=== PATIENT | female | born 1940 | race Caucasian/White ===

== ENCOUNTER → 2017-02-16 | Day surgery (SDC) | payer MEDICARE ==
[~2017-02-16] VITALS: Ht 162.6 cm; Wt 103.0 kg
[~2017-02-16] MED LIST: ACETAMINOPHEN 325 MG TAB PO PRN; AMAR4TAB PO; AMLO5TAB2 PO; ASCO1CAP PO; CALC-137 PO; CALC600T25 PO; CHLORHEXIDINE GLUCONATE 2 % 1 PACK (2 CLOTHS) TOPICAL PRN; CYCLOPENTOLATE HCL 1% OPHT SOLN 2 ML BTL ONE; DIGO0.12 PO; FLURBIPROFEN 0.03% OPHT SOLN 2.5 ML BTL ONE; FLUTI110I INH; FURO1TAB60 PO; HYDR-3533 PO; INSULIN HUMAN REGULAR 1,000 UNITS/10 ML VIAL SQ PRN; LACTATED RINGER'S 1000 ML IV PRN; LEVO112T2 PO; LIDOCAINE HCL 1% PF 30 ML VIAL ONE; LIDOCAINE HCL 2% JELLY 5 ML SYRINGE ONE; LIDOCAINE HCL 2% JELLY 5 ML SYRINGE TOPICAL ONE; LISI40TA PO; METO50TA PO; METOPROLOL TARTRATE 25 MG TAB PO PRN; NOVOLOGMXP SQ; PHENYLEPHRINE HCL 10% OPTH SOLN 5 ML BTL ONE; POVIDONE IODINE 5% (ANTISEPSIS KIT) 4 APPLICATIONS EACH NARE PRN; PRAV80TA2 PO; PROPARACAINE HCL 0.5% OPHT SOLN 15 ML BTL ONE; PROPARACAINE HCL 0.5% OPHT SOLN 15 ML BTL RIGHT EYE ONE; SODIUM CHLORID 0.9% 500 ML IV PRN; TOBRAMYCIN/DEXAMETHASONE OPTH OINT 3.5 GM TUBE ONE; TRAD5TAB PO; TROPICAMIDE 1% OPHT SOLN 15 ML BTL ONE; VENTAER INH; VITA2000 PO
[2017-02-16 09:30] VITALS: BP 151/67; PULSE 92; RESP 18; TEMP 97.6; O2SAT 99
[2017-02-16] MEDS: FLURBIPROFEN 0.03% OPHT SOLN 2.5 ML BTL RIGHT EYE SCH ×4 (09:45→10:00)
[2017-02-16] MEDS: PHENYLEPHRINE HCL 10% OPTH SOLN 5 ML BTL RIGHT EYE SCH ×4 (09:45→10:00)
[2017-02-16] MEDS: TROPICAMIDE 1% OPHT SOLN 15 ML BTL RIGHT EYE SCH ×4 (09:45→10:00)
[2017-02-16] MEDS: CYCLOPENTOLATE HCL 1% OPHT SOLN 2 ML BTL RIGHT EYE SCH ×4 (09:45→10:00)
[2017-02-16 11:35] VITALS: BP 128/56; PULSE 88; RESP 16; TEMP 98; O2SAT 97
--- NOTE | 2017-02-17 13:20 | MP ---
cc: YIMI BARAKAT M.D. DATE OF SURGERY: 02/16/2017. [facility] NUMBER: [id number]. PREOPERATIVE DIAGNOSIS: Visually significant cataract right eye. POSTOPERATIVE DIAGNOSIS: Visually significant cataract right eye. OPERATION: Phacoemulsification with posterior chamber lens implantation, right eye. SURGEON: Yimi Barakat MD ANESTHESIA: Topical with MAC. COMPLICATIONS: None. DESCRIPTION OF THE PROCEDURE IN DETAIL: After informed consent was obtained, the patient was brought into the operative suite and placed on appropriate monitors by the anesthesia service. The patient had been given dilating drops and topical lidocaine gel in the holding area. The patient's operative eye was then prepped and draped in the usual sterile fashion. A wire lid speculum was placed. Further 2% lidocaine was then dropped on the cornea prior to beginning the procedure. A paracentesis incision was made in the peripheral cornea with a 1 mm johny keratome. The anterior chamber was filled with viscoelastic. The anterior chamber was then entered through a stepped, clear corneal incision using a sharp 3 mm johny keratome. A circular tear capsulorrhexis was then made with a bent needle cystitome. Following hydrodissection of the lens nucleus with balance saline, phacoemulsification of the nucleus was performed using a modified chopping technique. The remaining cortex was removed with irrigation/aspiration. The prior two procedures were both performed using the handpieces of the [employer] phaco unit. The capsular bag was then filled with viscoelastic. The intraocular lens was then injected into the capsular bag and positioned. The type of intraocular lens and its power can be found elsewhere in this chart. The remaining viscoelastic was then removed from the anterior chamber with the IA handpiece. The anterior chamber was reformed with balanced saline. The wound was then closed securely with stromal hydration. It was found to be watertight to an intraocular pressure of at least 30 mmHg by palpation. A small amount of balanced salt solution was then removed through the paracentesis site and the intraocular pressure at the end of the case was approximately 20 by palpation. All drapes were then removed. TobraDex ointment was then placed in the eye, which was closed beneath a semi-pressure patch dressing. The patient tolerated this procedure well and left the operating room awake and alert. The patient is to follow-up in my office in the morning. MD ASHISH Olmstead /10:52 AM /1:15 PM
== END | disposition home or self-care (01) ==
LOC: PHSDC 07:49
PROVIDERS: ATTEND Optometrist Occupational Vision
DX: H25.811 Combined forms of age-related cataract, right eye (principal); H49.11 Fourth [trochlear] nerve palsy, right eye; H53.2 Diplopia; H25.11 Age-related nuclear cataract, right eye; H43.813 Vitreous degeneration, bilateral; I12.9 Hypertensive chronic kidney disease with stage 1 through stage 4 chronic kidney disease, or unspecified chronic kidney disease; E11.22 Type 2 diabetes mellitus with diabetic chronic kidney disease; N18.9 Chronic kidney disease, unspecified; E11.21 Type 2 diabetes mellitus with diabetic nephropathy; E06.3 Autoimmune thyroiditis; E78.5 Hyperlipidemia, unspecified; M54.16 Radiculopathy, lumbar region; E03.9 Hypothyroidism, unspecified; E55.9 Vitamin D deficiency, unspecified; E66.01 Morbid (severe) obesity due to excess calories; Z68.39 Body mass index [BMI] 39.0-39.9, adult; Z79.4 Long term (current) use of insulin; Z79.899 Other long term (current) drug therapy
CPT/HCPCS: 00142; 66984; 82948; J7040; V2632

== ENCOUNTER 2017-04-22 11:38 | Observation (INO) | payer MEDICARE ==
[~2017-04-22] VITALS: Ht 162.6 cm; Wt 104.0 kg
[2017-04-22] VITALS (12 sets, daily range): BP systolic 121–151; BP diastolic 60–72; PULSE 75–101; RESP 16–18; TEMP 97.6–98.1; O2SAT 94–99
[~2017-04-22 11:38] MED LIST changes: -ACETAMINOPHEN 325 MG TAB PO PRN; -CALC-137 PO; -CHLORHEXIDINE GLUCONATE 2 % 1 PACK (2 CLOTHS) TOPICAL PRN; -CYCLOPENTOLATE HCL 1% OPHT SOLN 2 ML BTL ONE; -FLURBIPROFEN 0.03% OPHT SOLN 2.5 ML BTL ONE; -HYDR-3533 PO; -INSULIN HUMAN REGULAR 1,000 UNITS/10 ML VIAL SQ PRN; -LACTATED RINGER'S 1000 ML IV PRN; -LIDOCAINE HCL 1% PF 30 ML VIAL ONE; -LIDOCAINE HCL 2% JELLY 5 ML SYRINGE ONE; -LIDOCAINE HCL 2% JELLY 5 ML SYRINGE TOPICAL ONE; -METOPROLOL TARTRATE 25 MG TAB PO PRN; -PHENYLEPHRINE HCL 10% OPTH SOLN 5 ML BTL ONE; -POVIDONE IODINE 5% (ANTISEPSIS KIT) 4 APPLICATIONS EACH NARE PRN; -PROPARACAINE HCL 0.5% OPHT SOLN 15 ML BTL ONE; -PROPARACAINE HCL 0.5% OPHT SOLN 15 ML BTL RIGHT EYE ONE; -SODIUM CHLORID 0.9% 500 ML IV PRN; -TOBRAMYCIN/DEXAMETHASONE OPTH OINT 3.5 GM TUBE ONE; -TROPICAMIDE 1% OPHT SOLN 15 ML BTL ONE
[2017-04-22] MEDS ORDERED: ONDANSETRON HCL 4 MG/2 ML VIAL IV PUSH ONE (12:00)
[2017-04-22] MEDS ORDERED: SODIUM CHLORIDE 0.9% FLUSH 10 ML FLUSH IVF PRN (12:00)
--- NOTE | 2017-04-22 12:00 | PD ---
HPI Chief Complaint: Chest Pain Time Seen by Provider: 11:53 Travel History International Travel<30 days: No Contact w/Intl Traveler<30days: No Traveled to known affect area: No History of Present Illness HPI Patient comes in complaining of left-sided chest pain described as sharp in nature began approximately hour prior to arrival. Patient's pain radiates into her left arm associated nausea and belching with this. Patient denies shortness of breath, headache, dizziness, numbness or tingling, abdominal pain, or diaphoresis. Patient reports she took 2 full strength aspirin prior to coming to the emergency department with minimal improvement of her symptoms. Denies anything making it worse. Reports her last stress test was approximately 2 years ago. Patient denies ever having cardiac catheter. Patient reports her in home tutor is Dr. Amaya. [facility] Past Medical History Atrial Fibrillation: Yes Blood Disorders: No Heart Rhythm Problems: Yes (PALPITATIONS) Cancer: Yes (RIGHT BREAST--34 YEARS AGO, CURRENT L BREAST) Cardiovascular Problems: Yes (HX OF PALPITATIONS) High Cholesterol: Yes Chest Pain: Yes Congestive Heart Failure: No Diabetes: Yes Endocrine: Yes GERD: Yes Genitourinary: No Hepatitis: No Hiatal Hernia: No Hypertension: Yes Immune Disorder: No Musculoskeletal: Yes (LUMBAR RADICULOPATHY) Neurologic: Yes (DIABETIC NEUROPATHY) Psychiatric: No Reproductive: No Respiratory: Yes (ASTHMA) Myocardial Infarction: No Radiation Therapy: No Thyroid Disease: Yes (HX OF STANTON'S; GOITER) Ulcer: No ?: Not Menopausal: Yes Past Surgical History Abdominal Surgery: Yes (CHOLECYSTECTOMY 1973) AICD: No Appendectomy: No Arteriovenous Shunt: No Body Medical Devices: NONE Cardiac Surgery: No Cholecystectomy: No Ear Surgery: No Endocrine Surgery: No Eye Surgery: Yes (LEFT CATARACT ) Genitourinary Surgery: No Gynecologic Surgery: Yes (TOTAL ABD.HYSTERECTOMY 1990) Hysterectomy: Yes Insulin Pump: No Joint Replacement: No Oral Surgery: No Pacemaker: No Thoracic Surgery: Yes (RADICAL RIGHT MASTECTOMY 1980) Other Surgery: Yes (RIGHT MASTECTOMY, HYSTERECTOMY, GALLBLADDER) Social History Alcohol Use: No Tobacco Use: No Substance Use: No Allergies-Medications (Allergen,Severity, Reaction): Coded Allergies: ciprofloxacin (Unverified Allergy, Severe, Itching, 04/22/17) SCRATCHING, HYPER fenofibrate (Unverified Allergy, Severe, Nausea/Vomiting, 04/22/17) Reported Meds & Prescriptions Reported Meds & Active Scripts Active Reported Calcium (Calcium Carbonate) 600 Mg Tab PO DAILY Vitamin D3 (Cholecalciferol) 2,000 Unit Cap 2,000 Units PO DAILY Vitamin C Tr (Ascorbic Acid) 500 Mg Caper 500 Mg PO DAILY Tradjenta (Linagliptin) 5 Mg Tab 5 Mg PO DAILY Metoprolol Tartrate 50 Mg Tab 50 Mg PO BID Amlodipine (Amlodipine Besylate) 5 Mg Tab 5 Mg PO DAILY Levothyroxine (Levothyroxine Sodium) 112 Mcg Tab 112 Mcg PO DAILY Lisinopril 40 Mg Tab 40 Mg PO DAILY Pravastatin 80 Mg Tab 80 Mg PO DAILY Novolog Mix 70-30 Inj (Insulin Aspart Prota 70%/Aspart 30%) 1,000 Unit/10 Ml Vial 16 Units SQ DAILY Lasix (Furosemide) 40 Mg Tab 40 Mg PO DAILY Flovent Hfa 12 GM Inh (Fluticasone Propionate) 110 Mcg/Act Inh 1 Puff INH BID Amaryl (Glimepiride) 4 Mg Tab 4 Mg PO DAILY Take with breakfast or first main meal Digoxin 0.125 Mg Tab 0.125 Mg PO DAILY Ventolin Hfa 18 GM Inh (Albuterol Sulfate) 90 Mcg/Act Aer 2 Puff INH Q4H PRN Review of Systems Except as stated in HPI: all other systems reviewed are Neg Physical Exam Narrative GENERAL: Well-developed, overly nourished, in no acute distress, and non-ill appearing. SKIN: Focused skin assessment warm and dry. HEAD: Atraumatic. Normocephalic. EYES: Pupils equal and round. EOMI. No scleral icterus. No injection or drainage. ENT: No nasal bleeding or discharge. Mucous membranes pink and moist. NECK: Trachea midline. No JVD. Supple. No nuclear rigidity. CARDIOVASCULAR: Regular rate and rhythm. No murmur appreciated. RESPIRATORY: No accessory muscle use. No respiratory distress. Clear to auscultation. Breath sounds equal bilaterally. MUSCULOSKELETAL: No obvious deformities. No clubbing. No cyanosis. No edema. Full range of motion. NEUROLOGICAL: Awake and alert. No obvious cranial nerve deficits. Motor grossly within normal limits. Normal speech. PSYCHIATRIC: Appropriate mood and affect; insight and judgment normal. Data Data Last Documented VS Vital Signs Date Time Temp Pulse Resp B/P (MAP) Pulse Ox O2 Delivery O2 Flow Rate FiO2 04/22/17 14:07 20 04/22/17 12:57 81 121/65 (83) 95 Room Air 04/22/17 11:46 97.6 Orders Orders Electrocardiogram (04/22/17 ) Basic Metabolic Panel (Bmp) (04/22/17 11:54) Ckmb (Isoenzyme) Profile (04/22/17 11:54) Complete Blood Count With Diff (04/22/17 11:54) Magnesium (Mg) (04/22/17 11:54) Prothrombin Time / Inr (Pt) (04/22/17 11:54) Act Partial Throm Time (Ptt) (04/22/17 11:54) Troponin I (04/22/17 11:54) Chest, Single Ap (04/22/17 11:54) Ecg Monitoring (04/22/17 11:54) Bilateral Bp Monitoring (04/22/17 11:54) Iv Access Insert/Monitor (04/22/17 11:54) Oximetry (04/22/17 11:54) Oxygen Administration (04/22/17 11:54) Sodium Chloride 0.9% Flush (Ns Flush) (04/22/17 12:00) Nitroglycerin Sl (Nitrostat Sl) (04/22/17 12:00) Ondansetron Inj (Zofran Inj) (04/22/17 12:00) Acetaminophen (Tylenol) (04/22/17 13:15) Sodium Chlorid 0.9% 500 Ml Inj (Ns 500 M (04/22/17 13:30) Admit Order (Ed Use Only) (04/22/17 14:22) Labs Laboratory Tests Test 04/22/17 12:25 White Blood Count 14.2 TH/MM3 Red Blood Count 3.91 MIL/MM3 Hemoglobin 11.5 GM/DL Hematocrit 35.0 % Mean Corpuscular Volume 89.4 FL Mean Corpuscular Hemoglobin 29.5 PG Mean Corpuscular Hemoglobin Concent 33.0 % Red Cell Distribution Width 12.5 % Platelet Count 298 TH/MM3 Mean Platelet Volume 8.9 FL Neutrophils (%) (Auto) 74.2 % Lymphocytes (%) (Auto) 16.6 % Monocytes (%) (Auto) 6.0 % Eosinophils (%) (Auto) 2.4 % Basophils (%) (Auto) 0.8 % Neutrophils # (Auto) 10.5 TH/MM3 Lymphocytes # (Auto) 2.4 TH/MM3 Monocytes # (Auto) 0.8 TH/MM3 Eosinophils # (Auto) 0.3 TH/MM3 Basophils # (Auto) 0.1 TH/MM3 CBC Comment DIFF FINAL Differential Comment Prothrombin Time 10.1 SEC Prothromb Time International Ratio 0.9 RATIO Activated Partial Thromboplast Time 21.4 SEC Blood Urea Nitrogen 48 MG/DL Creatinine 1.72 MG/DL Random Glucose 243 MG/DL Calcium Level 9.1 MG/DL Magnesium Level 1.9 MG/DL Sodium Level 137 MEQ/L Potassium Level 4.9 MEQ/L Chloride Level 108 MEQ/L Carbon Dioxide Level 19.6 MEQ/L Anion Gap 9 MEQ/L Estimat Glomerular Filtration Rate 29 ML/MIN Total Creatine Kinase 60 U/L Troponin I LESS THAN 0.02 NG/ML MDM Medical Decision Making Medical Screen Exam Complete: Yes Emergency Medical Condition: Yes Interpretation(s) EKG reviewed by Dr. Betts shows atrial fibrillation with a ventricular rate of 94. No STEMI. T-wave inversions in V1 through V3 Differential Diagnosis Acute coronary syndrome, angina, metabolic derangement, GERD, pneumonia, other Narrative Course Patient was seen and examined. IV was established and patient was placed on cardiac monitoring. Initial lab for radiological studies were ordered. Nitroglycerin sublingual was ordered. Suspect slightly elevated white blood cell count be stress-induced secondary to the chest pain. Patient reports she was recently checked for UTI found to be negative. Patient denies any symptoms. We'll check a UA to rule out possible UTI. 1400 patient reassessed reports symptoms and was completely alleviated after receiving nitroglycerin emergency department along with the aspirin she took prior to coming to the emergency department. Discussed with patient admission to the chest pain center. This discussed with patient who is agreeable for admission. All questions were answered. We'll await collection of UA and treat if positive. Discussed patient with Dr. Betts, who is in agreement with plan of care and disposition. Diagnosis Primary Impression: Chest pain Qualified Codes: R07.9 - Chest pain, unspecified Admitting Information Admitting Physician Requests: Observation Condition: Stable Chris Marin Apr 22, 2017 12:00
[2017-04-22] MEDS: NITROGLYCERIN 0.4 MG SL 25 TABS/BTL SL SCH ×3 (12:23→12:58)
--- NOTE | 2017-04-22 12:23 | RADRPT ---
EXAM DATE/TIME: 04/22/2017 11:58 [facility] COMPARISON: No previous studies available for comparison. INDICATIONS : Dizziness, left sided chest and arm pain. MEDICAL HISTORY : Pneumonia. Asthma. Atrial fibrillation. SURGICAL HISTORY : None. ENCOUNTER: Initial ACUITY: 1 day PAIN SCORE: 5/10 LOCATION: Left chest and arm. FINDINGS: A single view of the chest demonstrates the lungs to be symmetrically aerated without evidence of mas s, infiltrate or effusion. The cardiomediastinal contours are unremarkable. Osseous structures are intact. CONCLUSION: Normal examination for a patient of this age. Tae Acharya MD on April 22, 2017 at 12:21 Board Certified Radiologist. This report was verified electronically.
[2017-04-22 12:33] LABS: AUTOMATED NEUTROPHIL # 10.5 TH/MM3 (1.8-7.7); BASOPHIL # 0.1 TH/MM3 (0-0.2); BASOPHIL % 0.8 % (0.0-2.0); EOSINOPHIL # 0.3 TH/MM3 (0-0.4); EOSINOPHIL % 2.4 % (0.0-4.0); HEMO FLAGS DIFF FINAL; LYMPH % 16.6 % (9.0-44.0); LYMPHOCYTE # 2.4 TH/MM3 (1.0-4.8); MEAN CELL VOLUME 89.4 FL (80.0-100.0); MEAN CORPUSCULAR HEMOGLOBIN 29.5 PG (27.0-34.0); NEUT % 74.2 % (16.0-70.0); PLATELET COUNT 298 TH/MM3 (150-450); RED BLOOD COUNT 3.91 MIL/MM3 (4.00-5.30); RED CELL DISTRIBUTION WIDTH 12.5 % (11.6-17.2); WHITE BLOOD COUNT 14.2 TH/MM3 (4.0-11.0)
[2017-04-22 12:41] LABS: APTT (PATIENT) 21.4 SEC (24.3-30.1); INTERNATIONAL NORMALIZED RATIO 0.9 RATIO; PROTHROMBIN TIME - PATIENT 10.1 SEC (9.8-11.6)
[2017-04-22 13:15] LABS: CREATINE KINASE 60 U/L (26-192)
[2017-04-22] MEDS ORDERED: ACETAMINOPHEN 500 MG CPLT PO ONE (13:15)
[2017-04-22 13:16] LABS: ANION GAP 9 MEQ/L (5-15); BICARBONATE 19.6 MEQ/L (21.0-32.0); BLOOD UREA NITROGEN 48 MG/DL (7-18); CHLORIDE 108 MEQ/L (98-107); GLOMERULAR FILTRATION RATE 29 ML/MIN (>89); MAGNESIUM 1.9 MG/DL (1.5-2.5); POTASSIUM 4.9 MEQ/L (3.5-5.1); SODIUM (NA) 137 MEQ/L (136-145)
[2017-04-22] MEDS ORDERED: SODIUM CHLORID 0.9% 500 ML INJ 500 ML IV ONE (13:30)
--- NOTE | 2017-04-22 14:34 | EKG ---
Date Performed: 04/22/2017 Time Performed: 11:55:48 PTAGE: 76 years EKG: ATRIAL FIBRILLATION NONSPECIFIC ST & T-WAVE ABNORMALITY ABNORMAL RHYTHM ECG Compared to jerel or electrocardiogram, probable atrial fibrillation has replaced Sinus rhythm . PREVIOUS TRACING : 05/04/2008 13.26 DOCTOR: Ulysses Mejía Interpretating Date/Time 04/22/2017 14:32:45
[2017-04-22 15:54] LABS: CREATINE KINASE 44 U/L (26-192)
[2017-04-22] MEDS ORDERED: SODIUM CHLORIDE 0.9% FLUSH 5 ML FLUSH IVF PRN (16:00)
[2017-04-22] MEDS ORDERED: RESP: ALBUTEROL 2.5 MG/IPRATROPIUM 0.5 MG NEB (PRN) INH (16:00)
[2017-04-22] MEDS ORDERED: ONDANSETRON HCL 4 MG/2 ML VIAL IV PUSH PRN (16:00)
[2017-04-22] MEDS ORDERED: ACETAMINOPHEN 500 MG CPLT PO PRN (16:00)
[2017-04-22] MEDS ORDERED: ACETAMINOPHEN/HYDROcodone 325 MG/7.5 MG TAB PO PRN (16:00)
[2017-04-22] MEDS ORDERED: cloNIDine HCL 0.1 MG TAB PO PRN (16:00)
--- NOTE | 2017-04-22 16:24 | HHI.HP ---
[facility] Primary Care Physician Ruy Matson M.D. Chief Complaint Chest pain History of Present Illness This is a 76-year-old female that presents to ED via private vehicle with her with a complaint of grunting left-sided chest discomfort that began about 10:30 this morning while she is getting ready to go grocery shopping. She states that radiated into her left jaw and down her left arm. Last for half hours. While she had she found nothing to worsen or improve the symptoms. She states she took a couple baby aspirins and decided to come to the ED when it would not go away. She states that she was given subluminal nitroglycerin in the ED. After the first there are no change. She believes started feel little better after the second nitroglycerin but by time the third was a lining feller she was feeling a lot better. Still took another hour or so for the discomfort to resolve. Cannot recall having history of coronary artery disease. But states she has history of palpitations and upon review records she has history of atrial fibrillation. States she follows Dr. Amaya for palpitations. Patient denies feeling short of breath, nauseous, or diaphoretic with her symptoms. She believes she had a stress test but it was many years ago. Upon reviewing records she had a nonischemic adenosine thallium stress test in 2007 at this facility. Currently denies any discomfort. Denies recent illness. Denies fevers or chills. Denies any abdominal discomfort or difficulty with urination or painful urination. Denies black or tarry stools. (Manuel Fam) History of Present Illness Please remove "grunting" in line one (Jeyson Vasquez MD) Review of Systems General: Patient denies fevers, chills recent, and recent travel HEENT: Patient denies headache, sore throat, difficulty swallowing. Cardiovascular: Has the chest discomfort as mentioned above. Denies sensation of heart beating rapidly or irregularly. No syncope. Denies diaphoresis. Respiratory: Denies shortness of breath or inspirational chest discomfort. Denies coughing wheezing or hemoptysis. GI: Patient denies nausea, vomiting, diarrhea, abdominal pain, bloody stools. Musculoskeletal: Patient denies joint pain or edema. Denies calf pain or edema. Neurovascular: Patient denies numbness, tingling, weakness in extremities. Denies headache. Endocrine: Denies polyuria and polydipsia. Hematologic: Denies easy bruising. Skin: Denies rash or itching. (Manuel Fam) Past Family Social History Allergies: Coded Allergies: ciprofloxacin (Unverified Allergy, Severe, Itching, 04/22/17) SCRATCHING, HYPER fenofibrate (Unverified Allergy, Severe, Nausea/Vomiting, 04/22/17) Past Medical History Atrial fibrillation, hypertension, diabetes, hyperlipidemia, hypothyroidism. Denies coronary disease. Past Surgical History Hysterectomy, cholecystectomy, right mastectomy. Reported Medications Reported Meds & Active Scripts Active Reported Calcium (Calcium Carbonate) 600 Mg Tab PO DAILY Vitamin D3 (Cholecalciferol) 2,000 Unit Cap 2,000 Units PO DAILY Vitamin C Tr (Ascorbic Acid) 500 Mg Caper 500 Mg PO DAILY Tradjenta (Linagliptin) 5 Mg Tab 5 Mg PO DAILY Metoprolol Tartrate 50 Mg Tab 50 Mg PO BID Amlodipine (Amlodipine Besylate) 5 Mg Tab 5 Mg PO DAILY Levothyroxine (Levothyroxine Sodium) 112 Mcg Tab 112 Mcg PO DAILY Lisinopril 40 Mg Tab 40 Mg PO DAILY Pravastatin 80 Mg Tab 80 Mg PO DAILY Novolog Mix 70-30 Inj (Insulin Aspart Prota 70%/Aspart 30%) 1,000 Unit/10 Ml Vial 16 Units SQ DAILY Lasix (Furosemide) 40 Mg Tab 40 Mg PO DAILY Flovent Hfa 12 GM Inh (Fluticasone Propionate) 110 Mcg/Act Inh 1 Puff INH BID Amaryl (Glimepiride) 4 Mg Tab 4 Mg PO DAILY Take with breakfast or first main meal Digoxin 0.125 Mg Tab 0.125 Mg PO DAILY Ventolin Hfa 18 GM Inh (Albuterol Sulfate) 90 Mcg/Act Aer 2 Puff INH Q4H PRN Active Ordered Medications Current Medications Medications (Trade) Dose Ordered Sig/Galina Route Start Time Stop Time Status Last Admin (NS Flush) 2 ml UNSCH PRN IVF 04/22/17 12:00 (Norvasc) 5 mg DAILY PO 04/23/17 09:00 (Lanoxin) 0.125 mg DAILY PO 04/23/17 09:00 (Lasix) 40 mg DAILY PO 04/23/17 09:00 Future Hold (Synthroid) 112 mcg DAILY@0600 PO 04/23/17 06:00 (Lopressor) 50 mg BID PO 04/22/17 21:00 (Pravachol) 80 mg DAILY PO 04/23/17 09:00 (Prinivil) 40 mg DAILY PO 04/23/17 09:00 Family History Denies family history of CAD. Social History Patient is a lifetime nonsmoker. Denies alcohol or illicit drugs. She has been 52 years. (Manuel Fam) Physical Exam Vital Signs Vital Signs Date Time Temp Pulse Resp B/P (MAP) Pulse Ox O2 Delivery O2 Flow Rate FiO2 04/22/17 15:26 97.6 78 16 131/60 (83) 98 04/22/17 15:20 04/22/17 15:07 75 16 144/67 (92) 95 Room Air 04/22/17 14:07 20 04/22/17 13:03 20 04/22/17 12:57 81 18 121/65 (83) 95 Room Air 04/22/17 12:35 82 18 128/60 (82) 99 Room Air 04/22/17 12:25 16 99 Room Air 04/22/17 12:23 92 16 142/64 (90) 99 Room Air 04/22/17 11:46 97.6 101 17 151/72 (98) 97 Physical Exam GENERAL: This is a well-nourished, well-developed patient, in no apparent distress. Patient speaks in clear complete sentences. Patient is pleasant. HEENT: Head is atraumatic and normocephalic. Neck is supple without lymphadenopathy and trachea is midline. No JVD or carotid bruits. CARDIOVASCULAR: Irregularly irregular rate and rhythm without murmurs, gallops, or rubs. Rate in the 80s upon examination. RESPIRATORY: Clear to auscultation. Breath sounds equal bilaterally. No wheezes , rales, or rhonchi. Chest wall is nontender. No use of accessory muscles. GASTROINTESTINAL: Abdomen is nontender, nondistended. Abdomen soft. No obvious pulsatile mass or bruit. No CVA tenderness. Strong femoral pulses bilaterally. Normal bowel sounds in all quadrants. MUSCULOSKELETAL: Patient is moving upper and lower extremities freely. No calf tenderness or edema, no Homans sign. Strong pulses in upper and lower extremities. NEUROLOGICAL: Patient is alert and oriented. Cranial nerves 2-12 are grossly intact. No focal deficits and speech is clear. SKIN: No rash and turgor is normal. Laboratory Laboratory Tests Test 04/22/17 12:25 04/22/17 15:10 White Blood Count 14.2 Red Blood Count 3.91 Hemoglobin 11.5 Hematocrit 35.0 Mean Corpuscular Volume 89.4 Mean Corpuscular Hemoglobin 29.5 Mean Corpuscular Hemoglobin Concent 33.0 Red Cell Distribution Width 12.5 Platelet Count 298 Mean Platelet Volume 8.9 Neutrophils (%) (Auto) 74.2 Lymphocytes (%) (Auto) 16.6 Monocytes (%) (Auto) 6.0 Eosinophils (%) (Auto) 2.4 Basophils (%) (Auto) 0.8 Neutrophils # (Auto) 10.5 Lymphocytes # (Auto) 2.4 Monocytes # (Auto) 0.8 Eosinophils # (Auto) 0.3 Basophils # (Auto) 0.1 CBC Comment DIFF FINAL Differential Comment Prothrombin Time 10.1 Prothromb Time International Ratio 0.9 Activated Partial Thromboplast Time 21.4 Blood Urea Nitrogen 48 Creatinine 1.72 Random Glucose 243 Calcium Level 9.1 Magnesium Level 1.9 Sodium Level 137 Potassium Level 4.9 Chloride Level 108 Carbon Dioxide Level 19.6 Anion Gap 9 Estimat Glomerular Filtration Rate 29 Total Creatine Kinase 60 44 Troponin I LESS THAN 0.02 LESS THAN 0.02 (Manuel Fam) Result Diagram: 04/22/17 1225 04/22/17 1225 Imaging Last 48 hours Impressions Chest X-Ray 04/22/17 1154 Signed Impressions: Service Date/Time: Saturday, April 22, 2017 11:58 - CONCLUSION: Normal examination for a patient of this age. Tae Acharya MD Course EKGs have A. fib rate at 94 and [address] changes. (Manuel Fam) Caprini VTE Risk Assessment Caprini VTE Risk Assessment: Mod/High Risk (score >= 2) Caprini Risk Assessment Model Point Value = 1 Point Value = 2 Point Value = 3 Point Value = 5 Age 41-60 Minor surgery BMI > 25 kg/m2 Swollen legs Varicose veins or History of unexplained or recurrent spontaneous Oral contraceptives or hormone replacement Sepsis (< 1 month) Serious lung disease, including pneumonia (< 1 month) Abnormal pulmonary function Acute myocardial infarction Congestive heart failure (< 1 month) History of inflammatory bowel disease Medical patient at bed rest Age 61-74 Arthroscopic surgery Major open surgery (> 45 min) Laparoscopic surgery (> 45 min) Malignancy Confined to bed (> 72 hours) Immobilizing plaster cast Central venous access Age >= 75 History of VTE Family history of VTE Factor V Leiden Prothrombin [id number] Lupus anticoagulant Anticardiolipin antibodies Elevated serum homocysteine Heparin-induced thrombocytopenia Other congenital or acquired thrombophilia Stroke (< 1 month) Elective arthroplasty Hip, pelvis, or leg fracture Acute spinal cord injury (< 1 month) Prophylaxis Regimen Total Risk Factor Score Risk Level Prophylaxis Regimen 0-1 Low Early ambulation 2 Moderate Order ONE of the following: *Sequential Compression Device (SCD) *Heparin 5000 units SQ BID 3-4 Higher Order ONE of the following medications: *Heparin 5000 units SQ TID *Enoxaparin/Lovenox 40 mg SQ daily (WT < 150 kg, CrCl > 30 mL/min) *Enoxaparin/Lovenox 30 mg SQ daily (WT < 150 kg, CrCl > 10-29 mL/min) *Enoxaparin/Lovenox 30 mg SQ BID (WT < 150 kg, CrCl > 30 mL/min) AND/OR *Sequential Compression Device (SCD) 5 or more Highest Order ONE of the following medications: *Heparin 5000 units SQ TID (Preferred with Epidurals) *Enoxaparin/Lovenox 40 mg SQ daily (WT < 150 kg, CrCl > 30 mL/min) *Enoxaparin/Lovenox 30 mg SQ daily (WT < 150 kg, CrCl > 10-29 mL/min) *Enoxaparin/Lovenox 30 mg SQ BID (WT < 150 kg, CrCl > 30 mL/min) AND *Sequential Compression Device (SCD) (Manuel Fam) Assessment and Plan Assessment and Plan * Chest pain: Patient will continue to have serial cardiac enzymes and EKGs for ruling out purposes. She will be seen by Dr. Vasquez of cardiology in the chest pain center and likely have a Lexiscan if she rules out. Patient likely will also be discharged home if the stress test is nonischemic. She will then need to follow-up with her daub color mixer. * Atrial fibrillation: Patient's rate is controlled. We will get a dig level. Patient is currently not on anticoagulants and cannot recall ever being on them. Chads score 2. Discussed per DEXA dose with pharmacy. The calculated the dose for renal function and we will start per DEXA 75 mg twice a day. The risks and benefits of this medication were discussed with the patient and agrees to take the medication at this time. She will need to continue follow- up with her daub color mixer regarding this. * Hypertension: Continue current medication. * Hyperlipidemia: Continue current medication. * Renal insufficiency: Likely hold Lasix at this time and she should discuss this with her physician within a couple days of being discharged. Basic metabolic panel will be rechecked in the morning. * Diabetes: Sliding scale insulin coverage follow diabetic diet at discharge. Resume medication at discharge. Patient is stable at this time. She is agreeable to this plan. (Manuel Fam) Manuel Fam Apr 22, 2017 16:24 Jeyson Vasquez MD Apr 23, 2017 09:02
[2017-04-22] MEDS: INSULIN NovoLIN REGULAR SUPPLEMENTAL SCALE SQ SCH ×2 (17:00→21:25)
[2017-04-22] MEDS ORDERED: DEXTROSE 50% IN WATER 50 ML VIAL(D50) IV PUSH PRN ×2 (17:00→18:00)
[2017-04-22] MEDS ORDERED: GLUCAGON 1 MG/ML VIAL OTHER PRN ×2 (17:00→18:00)
[2017-04-22 17:48] LABS: DIGOXIN 1.4 NG/ML (0.8-2.0)
[2017-04-22 19:22] LABS: CREATINE KINASE 43 U/L (26-192)
[2017-04-22] MEDS: SODIUM CHLORIDE 0.9% FLUSH 5 ML FLUSH IVF SCH (21:00)
[2017-04-22] MEDS: METOPROLOL TARTRATE 50 MG TAB PO SCH (21:16)
[2017-04-22] MEDS: DABIGATRAN ETEXILATE 75 MG CAP PO SCH (21:16)
[2017-04-23] VITALS (8 sets, daily range): BP systolic 122–132; BP diastolic 58–66; PULSE 78–88; RESP 17–20; TEMP 97.5–98.2; O2SAT 95–98
[2017-04-23] MEDS ORDERED: LEVOTHYROXINE SODIUM 112 MCG TAB PO SCH (06:00)
[2017-04-23 07:35] LABS: BICARBONATE 18.9 MEQ/L (21.0-32.0); POTASSIUM 4.9 MEQ/L (3.5-5.1)
[2017-04-23] MEDS: INSULIN NovoLIN REGULAR SUPPLEMENTAL SCALE SQ SCH ×2 (08:00→12:00)
[2017-04-23] MEDS ORDERED: DIGOXIN 0.125 MG TAB PO SCH (09:00)
[2017-04-23] MEDS: SODIUM CHLORIDE 0.9% FLUSH 5 ML FLUSH IVF SCH (09:00)
[2017-04-23] MEDS ORDERED: PRAVASTATIN SOD 80 MG TAB PO SCH (09:00)
[2017-04-23] MEDS ORDERED: amLODIPine BESYLATE 5 MG TAB PO SCH (09:00)
[2017-04-23] MEDS ORDERED: FUROSEMIDE 40 MG TAB PO SCH (09:00)
[2017-04-23] MEDS ORDERED: ASPIRIN 325 MG TAB PO SCH (09:00)
[2017-04-23] MEDS ORDERED: LISINOPRIL 20 MG TAB PO SCH (09:00)
[2017-04-23] MEDS ORDERED: PANTOPRAZOLE SOD 40 MG DELAYED RELEASE TAB PO SCH (09:00)
--- NOTE | 2017-04-23 09:38 | PD.CARD.PN ---
Subjective Subjective Remarks No overnight complaints. No further chest discomfort. Objective Medications Current Medications Medications (Trade) Dose Ordered Sig/Galina Route Start Time Stop Time Status Last Admin (Norvasc) 5 mg DAILY PO 04/23/17 09:00 (Lanoxin) 0.125 mg DAILY PO 04/23/17 09:00 (Lasix) 40 mg DAILY PO 04/23/17 09:00 Future Hold (Synthroid) 112 mcg DAILY@0600 PO 04/23/17 06:00 04/23/17 06:39 (Lopressor) 50 mg BID PO 04/22/17 21:00 04/22/17 21:16 (Pravachol) 80 mg DAILY PO 04/23/17 09:00 (Prinivil) 40 mg DAILY PO 04/23/17 09:00 (Duoneb Neb) 1 ampule Q4HR NEB PRN INH 04/22/17 16:00 (Catapres) 0.1 mg Q4H PRN PO 04/22/17 16:00 (NS Flush) 2 ml UNSCH PRN IVF 04/22/17 16:00 (NS Flush) 2 ml BID IVF 04/22/17 21:00 (Tylenol) 500 mg Q4H PRN PO 04/22/17 16:00 (Schoenchen 7.5-325 Mg) 1 tab Q4H PRN PO 04/22/17 16:00 (Zofran Inj) 4 mg Q6H PRN IV PUSH 04/22/17 16:00 (Protonix) 40 mg DAILY PO 04/23/17 09:00 (Pradaxa) 75 mg BID PO 04/22/17 21:00 04/22/17 21:16 (NovoLIN R SUPPLEMENTAL SCALE) 1 ACHS SLIDING SCALE SQ 04/22/17 17:00 04/22/17 21:25 (D50w (Vial) Inj) 50 ml UNSCH PRN IV PUSH 04/22/17 17:00 (Glucagon Inj) 1 mg UNSCH PRN OTHER 04/22/17 17:00 (D50w (Vial) Inj) 50 ml UNSCH PRN IV PUSH 04/22/17 18:00 (Glucagon Inj) 1 mg UNSCH PRN OTHER 04/22/17 18:00 Vital Signs / I&O Vital Signs Date Time Temp Pulse Resp B/P (MAP) Pulse Ox O2 Delivery O2 Flow Rate FiO2 04/23/17 08:13 98.2 85 20 132/66 (88) 98 04/23/17 08:03 96 21 04/23/17 07:33 88 04/23/17 04:07 97.5 88 17 122/58 (79) 97 04/23/17 04:00 84 04/23/17 00:00 84 04/22/17 23:04 98.1 77 17 126/65 (85) 94 04/22/17 20:23 96 04/22/17 20:00 84 04/22/17 19:53 97.9 79 17 134/62 (86) 96 04/22/17 16:39 78 04/22/17 15:26 97.6 78 16 131/60 (83) 98 04/22/17 15:20 04/22/17 15:07 75 16 144/67 (92) 95 Room Air 04/22/17 14:07 20 04/22/17 13:03 20 04/22/17 12:57 81 18 121/65 (83) 95 Room Air 04/22/17 12:35 82 18 128/60 (82) 99 Room Air 04/22/17 12:25 16 99 Room Air 04/22/17 12:23 92 16 142/64 (90) 99 Room Air 04/22/17 11:46 97.6 101 17 151/72 (98) 97 I/O 04/22/17 04/22/17 04/22/17 04/23/17 04/23/17 04/23/17 07:00 15:00 23:00 07:00 15:00 23:00 Intake Total 500 ml Balance 500 ml Intake IV Total 500 ml # Voids 1 1 # Bowel Movements 1 Physical Exam General: A+Ox4. No acute distress. Friendly and pleasant. Cardiac: Rate regular, irregular, no murmur, rub or gallop. No JVD, no carotid bruits. Chest wall nontender with palpation. Resp: Lungs clear throughout, no crackles, wheeze, or rhonchi. Unlabored RR. Abd: obese, soft, nontender, +BS Psych: Appropriate mood, insight, and judgement. Skin: Normal turgor, pink, warm, and dry. Laboratory Laboratory Tests Test 04/22/17 12:25 04/22/17 15:10 10/14/17 18:40 04/23/17 06:59 White Blood Count 14.2 TH/MM3 Red Blood Count 3.91 MIL/MM3 Hemoglobin 11.5 GM/DL Hematocrit 35.0 % Mean Corpuscular Volume 89.4 FL Mean Corpuscular Hemoglobin 29.5 PG Mean Corpuscular Hemoglobin Concent 33.0 % Red Cell Distribution Width 12.5 % Platelet Count 298 TH/MM3 Mean Platelet Volume 8.9 FL Neutrophils (%) (Auto) 74.2 % Lymphocytes (%) (Auto) 16.6 % Monocytes (%) (Auto) 6.0 % Eosinophils (%) (Auto) 2.4 % Basophils (%) (Auto) 0.8 % Neutrophils # (Auto) 10.5 TH/MM3 Lymphocytes # (Auto) 2.4 TH/MM3 Monocytes # (Auto) 0.8 TH/MM3 Eosinophils # (Auto) 0.3 TH/MM3 Basophils # (Auto) 0.1 TH/MM3 CBC Comment DIFF FINAL Differential Comment Prothrombin Time 10.1 SEC Prothromb Time International Ratio 0.9 RATIO Activated Partial Thromboplast Time 21.4 SEC Blood Urea Nitrogen 48 MG/DL 44 MG/DL Creatinine 1.72 MG/DL 1.44 MG/DL Random Glucose 243 MG/DL 144 MG/DL Calcium Level 9.1 MG/DL 8.5 MG/DL Magnesium Level 1.9 MG/DL Sodium Level 137 MEQ/L 139 MEQ/L Potassium Level 4.9 MEQ/L 4.9 MEQ/L Chloride Level 108 MEQ/L 112 MEQ/L Carbon Dioxide Level 19.6 MEQ/L 18.9 MEQ/L Anion Gap 9 MEQ/L 8 MEQ/L Estimat Glomerular Filtration Rate 29 ML/MIN 36 ML/MIN Total Creatine Kinase 60 U/L 44 U/L 43 U/L Troponin I LESS THAN 0.02 NG/ML LESS THAN 0.02 NG/ML LESS THAN 0.02 NG/ML Thyroid Stimulating Hormone 3rd Gen 0.894 uIU/ML Digoxin Level 1.4 NG/ML Imaging Last 24 hours Impressions Chest X-Ray 04/22/17 [id number] Signed Impressions: Service Date/Time: Saturday, April 22, 2017 11:58 - CONCLUSION: Normal examination for a patient of this age. Tae Acharya MD Assessment and Plan Assessment and Plan Chest pain-seen and evaluated by Dr. Jeyson Vasquez. Proceed with chemical stress testing. If unremarkable, plans to discharge home later this afternoon. Patient and agreeable to plan of care. Chacha Santos Apr 23, 2017 09:38
[2017-04-23] MEDS: METOPROLOL TARTRATE 50 MG TAB PO SCH (09:40)
[2017-04-23] MEDS: DABIGATRAN ETEXILATE 75 MG CAP PO SCH (09:40)
[2017-04-23] MEDS ORDERED: REGADENOSON INJ 0.4 MG/5 ML SYR ONE (12:23)
--- NOTE | 2017-04-23 12:49 | EKG ---
Date Performed: 04/22/2017 Time Performed: 18:45:24 PTAGE: 76 years EKG: ATRIAL FIBRILLATION MODERATE ST DEPRESSION SLIGHTLY MORE PRONOUNCED THAN PRIOR. CLINICAL CO RRELATION SUGGESTED ABNORMAL ECG PREVIOUS TRACING : 04/22/2017 15.13 DOCTOR: Jeyson Vasquez Interpretating Date/Time 04/23/2017 12:47:57
--- NOTE | 2017-04-23 12:50 | EKG ---
Date Performed: 04/22/2017 Time Performed: 15:13:34 PTAGE: 76 years EKG: ATRIAL FIBRILLATION WITH ABERRANT CONDUCTION OR VENTRICULAR PREMATURE COMPLEXES MINIMAL ST DEPRESSION NO SIG CHANGE ABNORMAL RHYTHM ECG PREVIOUS TRACING : 04/22/2017 11.55 DOCTOR: Jeyson Vasquez Interpretating Date/Time 04/23/2017 12:49:20
--- NOTE | 2017-04-23 14:39 | RADRPT ---
EXAM DATE/TIME: 04/23/2017 11:43 [facility] COMPARISON: No previous studies available for comparison. INDICATIONS : Left chest pain radiating to the left arm with nausea. Angina. Atrial fibrillation. DOSE: 35 mCi Tc99m Myoview at stress. 11 mCi Tc99m Myoview at rest. 0.4 mg Lexiscan STRESS SYMPTOMS: Dyspnea, hot and nausea. EJECTION FRACTION: > 70% MEDICAL HISTORY : Hypercholesterolemia. Gastroesophageal reflux disease. Hypertension. SURGICAL HISTORY : Hysterectomy. Cholecystectomy. ENCOUNTER: Initial ACUITY: 1 day PAIN SCALE: 7/10 LOCATION: Left chest TECHNIQUE: The patient underwent pharmacologic stress with infusion of prescribed dose. Continuous ECG tracing was monitored during stress. Gated SPECT imaging was performed after stress and conventional SPECT i maging was performed at rest. The examination was performed on a SPECT/CT scanner, both attenuation and non-corrected datasets were reviewed. FINDINGS: DISTRIBUTION: The maximum perfused segment at stress is in the anteroseptal wall. PERFUSION STUDY: The pattern of perfusion at stress is within normal limits. GATED STUDY: There is intact wall motion and thickening without hypokinetic or dyskinetic segments. CONCLUSION: 1. Unremarkable myocardial perfusion scan. RISK CATEGORY: Low (<1% Annual Mortality Rate) Lan Collins MD on April 23, 2017 at 14:37 Board Certified Radiologist. This report was verified electronically.
[2017-04-23] MEDS ORDERED: PRAD75CA PO (15:13)
--- NOTE | 2017-04-23 15:15 | HHI.DCPOC ---
Discharge Care Plan Diagnosis: (1) Atypical chest pain (2) Renal insufficiency (3) Hypertension (4) Atrial fibrillation (5) Diabetes type 2, controlled (6) Hyperlipidemia Goals to Promote Your Health * To prevent worsening of your condition and complications * To maintain your health at the optimal level Directions to Meet Your Goals Take your medications as prescribed Follow your dietary instruction Follow activity as directed Keep your appointments as scheduled Take your immunizations and boosters as scheduled If your symptoms worsen call your PCP, if no PCP go to Urgent Care Center or Emergency Room Smoking is Dangerous to Your Health. Avoid second hand smoke Call the 24-hour hour crisis hotline for domestic abuse at Chacha Santos Apr 23, 2017 15:15
--- NOTE | 2017-04-23 15:19 | HHI.DS ---
Discharge Summary Admission Date Apr 22, 2017 at 14:25 Discharge Date: Apr 23, 2017 Admitting Diagnosis chest pain Brief History 76-year-old female history of hypertension, diabetes, and hyperlipidemia presents to emergency room for further evaluation of chest pain. Intermittent chest pain center. Ruled out with 3 sets of EKGs, cardiac enzymes, and monitored on telemetry overnight. Received with chemical stress test which was unremarkable for stress-induced ischemia. Atrial fibrillation noted on EKGs. History of palpitations, taking digoxin, without any anticoagulation. Patient did not recall history of A. fib, Pradaxa initiated. CBC/BMP: 04/22/17 1225 04/23/17 0659 Significant Findings Laboratory Tests Test 04/22/17 12:25 04/22/17 15:10 04/22/17 18:40 04/23/17 06:59 White Blood Count 14.2 TH/MM3 (4.0-11.0) Red Blood Count 3.91 MIL/MM3 (4.00-5.30) Hemoglobin 11.5 GM/DL (11.6-15.3) Neutrophils (%) (Auto) 74.2 % (16.0-70.0) Neutrophils # (Auto) 10.5 TH/MM3 (1.8-7.7) Activated Partial Thromboplast Time 21.4 SEC (24.3-30.1) Blood Urea Nitrogen 48 MG/DL (7-18) 44 MG/DL (7-18) Creatinine 1.72 MG/DL (0.50-1.00) 1.44 MG/DL (0.50-1.00) Random Glucose 243 MG/DL (74-106) 144 MG/DL (74-106) Chloride Level 108 MEQ/L (98-107) 112 MEQ/L (98-107) Carbon Dioxide Level 19.6 MEQ/L (21.0-32.0) 18.9 MEQ/L (21.0-32.0) Estimat Glomerular Filtration Rate 29 ML/MIN (>89) 36 ML/MIN (>89) Troponin I LESS THAN 0.02 NG/ML LESS THAN 0.02 NG/ML LESS THAN 0.02 NG/ML Imaging Last 48 hours Impressions Chest X-Ray 04/22/17 [id number] Signed Impressions: Service Date/Time: Saturday, April 22, 2017 11:58 - CONCLUSION: Normal examination for a patient of this age. Tae J. Siragusa, MD Pt Condition on Discharge: Good Discharge Disposition: Discharge Home Discharge Instructions DIET: Follow Instructions for: Heart Healthy Diet Activities you can perform: Regular-No Restrictions Chacha Santos Apr 23, 2017 15:19
--- NOTE | 2017-04-24 10:52 | TR ---
Date Performed: 04/23/2017 Time Performed: 12:34:53 DOCTOR: Jeyson Vasquez DRUG LIST: CLINICAL HISTORY: REASON FOR TEST: CHEST PAIN REASON FOR ENDING: OBSERVATION: CONCLUSION: Lexiscan stress test was performed under standard four minute protocol. Radionuclide was injected one minute prior to ending the test. No electrocardiographic abormalities were present to suggest ischemia. Nuclear imaging and interpretation are pending. COMMENTS:
== END 2017-04-23 17:17 | disposition home or self-care (01) ==
LOC: NEPC 11:38 → NEDA 14:25 → NEPHCDU 15:17
PROVIDERS: ADMIT Internal Medicine Interventional Cardiology; ATTEND Internal Medicine Interventional Cardiology
DX: R07.89 Other chest pain (principal); I48.91 Unspecified atrial fibrillation; I10 Essential (primary) hypertension; E78.5 Hyperlipidemia, unspecified; N28.9 Disorder of kidney and ureter, unspecified; R00.2 Palpitations; R42 Dizziness and giddiness; M79.602 Pain in left arm; R11.0 Nausea; R06.00 Dyspnea, unspecified; J45.909 Unspecified asthma, uncomplicated; I20.9 Angina pectoris, unspecified; E78.00 Pure hypercholesterolemia, unspecified; E03.9 Hypothyroidism, unspecified; K21.9 Gastro-esophageal reflux disease without esophagitis; E11.40 Type 2 diabetes mellitus with diabetic neuropathy, unspecified; E06.3 Autoimmune thyroiditis; M54.16 Radiculopathy, lumbar region; R94.31 Abnormal electrocardiogram [ECG] [EKG]; Z79.899 Other long term (current) drug therapy
CPT/HCPCS: 71010; 78452; 80048; 80162; 82550; 82948; 83735; 84443; 84484; 85025; 85610; 85730; 93005; 93017; 96361; 96372; 96374; A9502; G0378; J2405; J2785; J7040

== ENCOUNTER 2017-06-14 14:43 | Observation (INO) | payer MEDICARE ==
[~2017-06-14] VITALS: Ht 162.6 cm; Wt 109.7 kg
[~2017-06-14 14:43] MED LIST changes: -CALC600T25 PO; +CALC600T5 PO; +PRAD75CA PO
[2017-06-14 14:44] VITALS: BP 155/70; PULSE 105; RESP 16; TEMP 97.8; O2SAT 98
[2017-06-14] MEDS ORDERED: SODIUM CHLORIDE 0.9% FLUSH 10 ML FLUSH IVF PRN (15:15)
--- NOTE | 2017-06-14 15:51 | RADRPT ---
EXAM DATE/TIME: 06/14/2017 15:27 [facility] COMPARISON: No previous studies available for comparison. INDICATIONS : Short of breath. MEDICAL HISTORY : Congestive heart failure. Hypertension Hypercholesterolemia. SURGICAL HISTORY : Hysterectomy. Cholecystectomy. ENCOUNTER: Initial ACUITY: 1 day PAIN SCORE: 0/10 LOCATION: Bilateral chest FINDINGS: Interstitial vascular prominence is evident throughout both lungs. There is small bilateral effusions . Heart is within normal limits in size. Spondylosis is seen along the thoracic spine. CONCLUSION: 1. Interstitial vascular prominence suggesting mild congestion. 2. Small bilateral effusions. 3. No consolidating airspace disease. Jt Dunlap MD on June 14, 2017 at 15:48 Board Certified Radiologist. This report was verified electronically.
[2017-06-14] MEDS ORDERED: ASPI-516 CHEW (16:43)
--- NOTE | 2017-06-14 16:45 | PD ---
HPI Chief Complaint: Respiratory Symptoms Time Seen by Provider: 16:31 Travel History International Travel<30 days: No Contact w/Intl Traveler<30days: No Traveled to known affect area: No History of Present Illness HPI 76-year-old female presents to the emergency department for evaluation of shortness of breath. Patient was sent by her time cycle operator, Dr. Trujillo, for new onset CHF. Patient states she has a history of asthma. She felt more short of breath this morning. Her time cycle operator, Dr. Trujillo, ordered a chest x-ray which showed CHF so she was referred to the emergency department. Patient does state her Ventolin did help her shortness of breath. No fevers. She denies any chest pain. No abdominal pain. No nausea, vomiting, diarrhea. Patient denies any recent surgery or travel to the past month. No hemoptysis. No history DVT or PE. She does state that her bilateral lower extremities are more swollen than normal. Ventolin did help shortness of breath. No exacerbating factors. Moderate severity. PFSH Past Medical History Hx Anticoagulant Therapy: Yes (ASA) Atrial Fibrillation: Yes Blood Disorders: No Heart Rhythm Problems: Yes (PALPITATIONS) Cancer: Yes (RIGHT BREAST--34 YEARS AGO, CURRENT L BREAST) Cardiovascular Problems: Yes (HTN) High Cholesterol: Yes Chest Pain: Yes Congestive Heart Failure: No Diabetes: Yes Patient Takes Glucophage: No Diminished Hearing: No Endocrine: Yes GERD: Yes Genitourinary: No Hepatitis: No Hiatal Hernia: No Hypertension: Yes Immune Disorder: No Medical other: Yes (ASH FOOT AND LEG EDEMA;BELLS PALSY;VITAMIN D DEF) Musculoskeletal: Yes (LUMBAR RADICULOPATHY) Neurologic: Yes (DIABETIC NEUROPATHY) Psychiatric: No Reproductive: No Respiratory: Yes (ASTHMA) Myocardial Infarction: No Pneumonia: Yes Radiation Therapy: No Thyroid Disease: Yes (HX OF STANTON'S; GOITER) Ulcer: No Menopausal: Yes : 0 Para: 0 Miscarriage: 0 : 0 Past Surgical History Abdominal Surgery: Yes (CHOLECYSTECTOMY 1973) AICD: No Appendectomy: No Arteriovenous Shunt: No Body Medical Devices: NONE Cardiac Surgery: No Cholecystectomy: Yes Ear Surgery: No Endocrine Surgery: No Eye Surgery: Yes (LEFT CATARACT ) Genitourinary Surgery: No Gynecologic Surgery: Yes (TOTAL ABD.HYSTERECTOMY 1990) Hysterectomy: Yes Insulin Pump: No Joint Replacement: No Neurologic Surgery: Yes (CRANIOTOMY 12/12/16 benign menagioma removed) Oral Surgery: No Pacemaker: No Thoracic Surgery: Yes (RADICAL RIGHT MASTECTOMY 1980) Other Surgery: Yes (bilat MASTECTOMY, HYSTERECTOMY, GALLBLADDER) Social History Alcohol Use: No Tobacco Use: No Substance Use: No Allergies-Medications (Allergen,Severity, Reaction): Coded Allergies: ciprofloxacin (Unverified Allergy, Severe, Itching, 06/14/17) SCRATCHING, HYPER fenofibrate (Unverified Allergy, Severe, Nausea/Vomiting, 06/14/17) Reported Meds & Prescriptions Reported Meds & Active Scripts Active Reported Aspirin 81 Mg Chew 81 Mg CHEW DAILY Vitamin D3 (Cholecalciferol) 2,000 Unit Cap 2,000 Units PO DAILY Tradjenta (Linagliptin) 5 Mg Tab 5 Mg PO DAILY Metoprolol Tartrate 50 Mg Tab 50 Mg PO BID Amlodipine (Amlodipine Besylate) 5 Mg Tab 5 Mg PO DAILY Levothyroxine (Levothyroxine Sodium) 112 Mcg Tab 112 Mcg PO DAILY Lisinopril 40 Mg Tab 40 Mg PO DAILY Pravastatin 80 Mg Tab 80 Mg PO HS Novolog Mix 70-30 Inj (Insulin Aspart Prota 70%/Aspart 30%) 1,000 Unit/10 Ml Vial 56 Units SQ DAILY@1600 Lasix (Furosemide) 40 Mg Tab 40 Mg PO DAILY Flovent Hfa 12 GM Inh (Fluticasone Propionate) 110 Mcg/Act Inh 1 Puff INH BID Amaryl (Glimepiride) 4 Mg Tab 4 Mg PO DAILY Take with breakfast or first main meal Digoxin 0.125 Mg Tab 0.125 Mg PO DAILY Ventolin Hfa 18 GM Inh (Albuterol Sulfate) 90 Mcg/Act Aer 2 Puff INH Q4H PRN Review of Systems Except as stated in HPI: all other systems reviewed are Neg Physical Exam Narrative GENERAL: Well-nourished, well-developed female patient, afebrile. SKIN: Focused skin assessment warm/dry. HEAD: Normocephalic. Atraumatic. EYES: No scleral icterus. No injection or drainage. NECK: Supple, trachea midline. No JVD or lymphadenopathy. CARDIOVASCULAR: Regular rate and rhythm without murmurs, gallops, or rubs. RESPIRATORY: Breath sounds equal bilaterally. No accessory muscle use. Lungs sounds are clear to auscultation. GASTROINTESTINAL: Abdomen soft, non-tender, nondistended. MUSCULOSKELETAL: No cyanosis. Patient has bilateral 2+ lower extremity edema. BACK: Nontender without obvious deformity. No CVA tenderness. Data Data Last Documented VS Vital Signs Date Time Temp Pulse Resp B/P (MAP) Pulse Ox O2 Delivery O2 Flow Rate FiO2 06/14/17 17:34 85 21 161/77 (105) 97 Room Air 06/14/17 14:44 97.8 Orders Orders Electrocardiogram (06/14/17 15:12) Basic Metabolic Panel (Bmp) (06/14/17 15:12) B-Type Natriuretic Peptide (06/14/17 15:12) Ckmb (Isoenzyme) Profile (06/14/17 15:12) Complete Blood Count With Diff (06/14/17 15:12) Magnesium (Mg) (06/14/17 15:12) Prothrombin Time / Inr (Pt) (06/14/17 15:12) Act Partial Throm Time (Ptt) (06/14/17 15:12) Troponin I (06/14/17 15:12) Sodium Chloride 0.9% Flush (Ns Flush) (06/14/17 15:15) Chest, Pa & Lat (06/14/17 15:12) Furosemide Inj (Lasix Inj) (06/14/17 17:45) Admit Order (Ed Use Only) (06/14/17 17:57) Labs Laboratory Tests Test 06/14/17 16:40 White Blood Count 13.0 TH/MM3 Red Blood Count 3.65 MIL/MM3 Hemoglobin 10.8 GM/DL Hematocrit 32.8 % Mean Corpuscular Volume 90.0 FL Mean Corpuscular Hemoglobin 29.6 PG Mean Corpuscular Hemoglobin Concent 32.9 % Red Cell Distribution Width 13.1 % Platelet Count 273 TH/MM3 Mean Platelet Volume 8.4 FL Neutrophils (%) (Auto) 70.5 % Lymphocytes (%) (Auto) 19.5 % Monocytes (%) (Auto) 6.8 % Eosinophils (%) (Auto) 2.5 % Basophils (%) (Auto) 0.7 % Neutrophils # (Auto) 9.1 TH/MM3 Lymphocytes # (Auto) 2.5 TH/MM3 Monocytes # (Auto) 0.9 TH/MM3 Eosinophils # (Auto) 0.3 TH/MM3 Basophils # (Auto) 0.1 TH/MM3 CBC Comment DIFF FINAL Differential Comment Prothrombin Time 10.0 SEC Prothromb Time International Ratio 1.0 RATIO Activated Partial Thromboplast Time 25.0 SEC Blood Urea Nitrogen 39 MG/DL Creatinine 1.59 MG/DL Random Glucose 174 MG/DL Calcium Level 9.0 MG/DL Magnesium Level 1.8 MG/DL Sodium Level 139 MEQ/L Potassium Level 4.8 MEQ/L Chloride Level 112 MEQ/L Carbon Dioxide Level 18.6 MEQ/L Anion Gap 8 MEQ/L Estimat Glomerular Filtration Rate 32 ML/MIN Total Creatine Kinase 57 U/L Troponin I LESS THAN 0.02 NG/ML B-Type Natriuretic Peptide 260 PG/ML MDM Medical Decision Making Medical Screen Exam Complete: Yes Emergency Medical Condition: Yes Medical Record Reviewed: Yes Interpretation(s) Last Impressions Chest X-Ray 06/14/17 1832 Signed Impressions: Service Date/Time: Monday, June 14, 2017 15:27 - CONCLUSION: 1. Interstitial vascular prominence suggesting mild congestion. 2. Small bilateral effusions. 3. No consolidating airspace disease. Jt Dunlap MD Differential Diagnosis New-onset CHF versus dependent edema versus asthma exacerbation Narrative Course 76-year-old female presents to the emergency department for evaluation of new onset CHF. EKG shows atrial fibrillation, heart rate 91, no acute ST changes. Patient has history of atrial fibrillation according to chart. CBC, BMP, BNP, magnesium, CK, troponin, PTT, PT/INR, chest x-ray are ordered and pending. CBC shows leukocytosis 13.0, anemia of hemoglobin 10.8, hematocrit 32.8. BMP shows BUN and creatinine at 39/1.59. BNP is 260. Magnesium is 1.8. CK is 57. Troponin is less than 0.02. Coags are unremarkable. Chest x-ray shows interstitial vascular prominence suggesting mild congestion, small bilateral effusions, no cough elevated airspace disease. Patient is given Lasix 40 mEq IV. [facility] is paged for admission. Diagnosis Primary Impression: New onset of congestive heart failure Admitting Information Admitting Physician Requests: Kezia Leger Jun 14, 2017 16:45
[2017-06-14 17:00] LABS: AUTOMATED NEUTROPHIL # 9.1 TH/MM3 (1.8-7.7); BASOPHIL # 0.1 TH/MM3 (0-0.2); BASOPHIL % 0.7 % (0.0-2.0); EOSINOPHIL # 0.3 TH/MM3 (0-0.4); EOSINOPHIL % 2.5 % (0.0-4.0); HEMATOCRIT 32.8 % (35.0-46.0); HEMO FLAGS DIFF FINAL; LYMPH % 19.5 % (9.0-44.0); LYMPHOCYTE # 2.5 TH/MM3 (1.0-4.8); MEAN CORPUSCULAR HEMOGLOBIN 29.6 PG (27.0-34.0); MEAN CORPUSCULAR HGB CONC 32.9 % (32.0-36.0); MONO % 6.8 % (0.0-8.0); NEUT % 70.5 % (16.0-70.0); PLATELET COUNT 273 TH/MM3 (150-450); RED BLOOD COUNT 3.65 MIL/MM3 (4.00-5.30); RED CELL DISTRIBUTION WIDTH 13.1 % (11.6-17.2)
[2017-06-14 17:14] LABS: ANION GAP 8 MEQ/L (5-15); BICARBONATE 18.6 MEQ/L (21.0-32.0); BLOOD UREA NITROGEN 39 MG/DL (7-18); CHLORIDE 112 MEQ/L (98-107); GLOMERULAR FILTRATION RATE 32 ML/MIN (>89); MAGNESIUM 1.8 MG/DL (1.5-2.5); POTASSIUM 4.8 MEQ/L (3.5-5.1); SODIUM (NA) 139 MEQ/L (136-145)
[2017-06-14 17:21] LABS: CREATINE KINASE 57 U/L (26-192)
[2017-06-14 17:34] VITALS: BP 161/77; PULSE 85; RESP 21; O2SAT 97
[2017-06-14] MEDS ORDERED: FUROSEMIDE 40 MG/4 ML VIAL IV PUSH ONE (17:45)
--- NOTE | 2017-06-14 18:58 | HHI.HP ---
HPI Service [facility] Primary Care Physician Ruy Matson M.D. Admission Diagnosis new onset CHF Chief Complaint: lower extrmity edema for 1 week with sob 2 days Travel History International Travel<30 Days: No Contact w/Intl Traveler <30 Da: No Traveled to Known Affected Are: No History of Present Illness 76-year-old female presents to the emergency department for evaluation of shortness of breath. Patient was sent by her source water protection specialist, Dr. Trujillo, for new onset CHF. Patient states she has a history of asthma. She felt more short of breath approx last 2 days Her source water protection specialist, Dr. Trujillo, whop she see's for asthma ordered a chest x-ray which showed CHF so she was referred to the emergency department. Patient does state her Ventolin did help her shortness of breath. No fevers. She denies any chest pain. No abdominal pain. No nausea, vomiting, diarrhea. Patient denies any recent surgery or travel to the past month. No hemoptysis. No history DVT or PE. She does state that her bilateral lower extremities are more swollen than normal although she says severe over last week. Ventolin did help shortness of breath. No exacerbating factors. Moderate severity. 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 Had stress test according to patient was unremarkable. Will give IV lasix and follow labs. Review of Systems Respiratory: COMPLAINS OF: Shortness of breath Cardiovascular: COMPLAINS OF: Palpitations, Dyspnea on Exertion, Lower Extremity Edema Past Family Social History Past Medical History atrial fib,hyperlipidemia,diabetes ,bells palsy,back pain,diabetic neuropathy asthma goiter Past Surgical History gallbladder left cateract,hysterectomy benign menagioma removed 12/24 Reported Medications Aspirin 81 Mg Chew 81 Mg CHEW DAILY Vitamin D3 (Cholecalciferol) 2,000 Unit Cap 2,000 Units PO DAILY Tradjenta (Linagliptin) 5 Mg Tab 5 Mg PO DAILY Metoprolol Tartrate 50 Mg Tab 50 Mg PO BID Amlodipine (Amlodipine Besylate) 5 Mg Tab 5 Mg PO DAILY Levothyroxine (Levothyroxine Sodium) 112 Mcg Tab 112 Mcg PO DAILY Lisinopril 40 Mg Tab 40 Mg PO DAILY Pravastatin 80 Mg Tab 80 Mg PO HS Novolog Mix 70-30 Inj (Insulin Aspart Prota 70%/Aspart 30%) 1,000 Unit/10 Ml Vial 56 Units SQ DAILY@1600 Lasix (Furosemide) 40 Mg Tab 40 Mg PO DAILY Flovent Hfa 12 GM Inh (Fluticasone Propionate) 110 Mcg/Act Inh 1 Puff INH BID Amaryl (Glimepiride) 4 Mg Tab 4 Mg PO DAILY Take with breakfast or first main meal Digoxin 0.125 Mg Tab 0.125 Mg PO DAILY Ventolin Hfa 18 GM Inh (Albuterol Sulfate) 90 Mcg/Act Aer 2 Puff IN Allergies: Coded Allergies: ciprofloxacin (Unverified Allergy, Severe, Itching, 06/14/17) SCRATCHING, HYPER fenofibrate (Unverified Allergy, Severe, Nausea/Vomiting, 06/14/17) Social History NS,ND Physical Exam Vital Signs Vital Signs Date Time Temp Pulse Resp B/P (MAP) Pulse Ox O2 Delivery O2 Flow Rate FiO2 06/14/17 17:34 85 21 161/77 (105) 97 Room Air 06/14/17 14:44 97.8 105 16 155/70 (98) 98 Physical Exam GENERAL: This is a well-nourished, well-developed patient, in no apparent distress. SKIN: No rashes, ecchymoses or lesions. Cool and dry. HEAD: Atraumatic. Normocephalic. No temporal or scalp tenderness. EYES: Pupils equal round and reactive. Extraocular motions intact. No scleral icterus. No injection or drainage. ENT: Nose without bleeding, purulent drainage or septal hematoma. Throat without erythema, tonsillar hypertrophy or exudate. Uvula midline. Airway patent. NECK: Trachea midline. No JVD or lymphadenopathy. Supple, nontender, no meningeal signs. CARDIOVASCULAR: IRREG rate and rhythm without murmurs, gallops, or rubs. RESPIRATORY: Breath sounds decreased bilateral No wheezes, rales bases GASTROINTESTINAL: Abdomen soft, non-tender, nondistended. No hepato-splenomegaly , or palpable masses. No guarding. MUSCULOSKELETAL: Extremities without clubbing, cyanosis, has plus 4 edema lower extremities No calf tenderness. Negative Homans sign bilaterally. NEUROLOGICAL: Awake and alert. Cranial nerves II through XII intact. Motor and sensory grossly within normal limits. Five out of 5 muscle strength in all muscle groups. Normal speech. Laboratory Laboratory Tests Test 06/14/17 16:40 White Blood Count 13.0 Red Blood Count 3.65 Hemoglobin 10.8 Hematocrit 32.8 Mean Corpuscular Volume 90.0 Mean Corpuscular Hemoglobin 29.6 Mean Corpuscular Hemoglobin Concent 32.9 Red Cell Distribution Width 13.1 Platelet Count 273 Mean Platelet Volume 8.4 Neutrophils (%) (Auto) 70.5 Lymphocytes (%) (Auto) 19.5 Monocytes (%) (Auto) 6.8 Eosinophils (%) (Auto) 2.5 Basophils (%) (Auto) 0.7 Neutrophils # (Auto) 9.1 Lymphocytes # (Auto) 2.5 Monocytes # (Auto) 0.9 Eosinophils # (Auto) 0.3 Basophils # (Auto) 0.1 CBC Comment DIFF FINAL Differential Comment Prothrombin Time 10.0 Prothromb Time International Ratio 1.0 Activated Partial Thromboplast Time 25.0 Blood Urea Nitrogen 39 Creatinine 1.59 Random Glucose 174 Calcium Level 9.0 Magnesium Level 1.8 Sodium Level 139 Potassium Level 4.8 Chloride Level 112 Carbon Dioxide Level 18.6 Anion Gap 8 Estimat Glomerular Filtration Rate 32 Total Creatine Kinase 57 Troponin I LESS THAN 0.02 B-Type Natriuretic Peptide 260 Result Diagram: 06/14/17 1640 06/14/17 1640 Imaging Last 24 hours Impressions Chest X-Ray 06/14/17 1512 Signed Impressions: Service Date/Time: Wednesday, June 14, 2017 15:27 - CONCLUSION: 1. Interstitial vascular prominence suggesting mild congestion. 2. Small bilateral effusions. 3. No consolidating airspace disease. Jt Dunlap MD Course in er had ekg controlled a fib given 40mg IV lasix Caprini VTE Risk Assessment Caprini VTE Risk Assessment: Mod/High Risk (score >= 2) Caprini Risk Assessment Model Point Value = 1 Point Value = 2 Point Value = 3 Point Value = 5 Age 41-60 Minor surgery BMI > 25 kg/m2 Swollen legs Varicose veins or History of unexplained or recurrent spontaneous Oral contraceptives or hormone replacement Sepsis (< 1 month) Serious lung disease, including pneumonia (< 1 month) Abnormal pulmonary function Acute myocardial infarction Congestive heart failure (< 1 month) History of inflammatory bowel disease Medical patient at bed rest Age 61-74 Arthroscopic surgery Major open surgery (> 45 min) Laparoscopic surgery (> 45 min) Malignancy Confined to bed (> 72 hours) Immobilizing plaster cast Central venous access Age >= 75 History of VTE Family history of VTE Factor V Leiden Prothrombin [id number] Lupus anticoagulant Anticardiolipin antibodies Elevated serum homocysteine Heparin-induced thrombocytopenia Other congenital or acquired thrombophilia Stroke (< 1 month) Elective arthroplasty Hip, pelvis, or leg fracture Acute spinal cord injury (< 1 month) Prophylaxis Regimen Total Risk Factor Score Risk Level Prophylaxis Regimen 0-1 Low Early ambulation 2 Moderate Order ONE of the following: *Sequential Compression Device (SCD) *Heparin 5000 units SQ BID 3-4 Higher Order ONE of the following medications: *Heparin 5000 units SQ TID *Enoxaparin/Lovenox 40 mg SQ daily (WT < 150 kg, CrCl > 30 mL/min) *Enoxaparin/Lovenox 30 mg SQ daily (WT < 150 kg, CrCl > 10-29 mL/min) *Enoxaparin/Lovenox 30 mg SQ BID (WT < 150 kg, CrCl > 30 mL/min) AND/OR *Sequential Compression Device (SCD) 5 or more Highest Order ONE of the following medications: *Heparin 5000 units SQ TID (Preferred with Epidurals) *Enoxaparin/Lovenox 40 mg SQ daily (WT < 150 kg, CrCl > 30 mL/min) *Enoxaparin/Lovenox 30 mg SQ daily (WT < 150 kg, CrCl > 10-29 mL/min) *Enoxaparin/Lovenox 30 mg SQ BID (WT < 150 kg, CrCl > 30 mL/min) AND *Sequential Compression Device (SCD) Assessment and Plan Problem List: (1) New onset of congestive heart failure ICD Codes: I50.9 - Heart failure, unspecified Status: Acute Plan: will use lasix iv bid continue statin already on mg get 2d echo (2) Edema ICD Codes: R60.9 - Edema, unspecified Status: Acute Plan: patient states it is new but has been on lasix so may be exacerbation (3) Diabetes type 2, controlled ICD Codes: E11.9 - Type 2 diabetes mellitus without complications Status: Chronic Plan: continue current meds and insulin (4) Hypertension ICD Codes: I10 - Essential (primary) hypertension Status: Chronic Plan: continue current meds (5) Renal insufficiency ICD Codes: N28.9 - Disorder of kidney and ureter, unspecified Status: Chronic Plan: will follow labs (6) Atrial fibrillation ICD Codes: I48.91 - Unspecified atrial fibrillation Status: Chronic Plan: on digoxin does not want anticoagulation other then asa Assessment and Plan further plan as per repeat labs and response to treatment Code Status full Discussed Condition With patient Obi Sherwood MD Jun 14, 2017 18:58
[2017-06-14] MEDS ORDERED: SODIUM CHLORIDE 0.9% FLUSH 10 ML FLUSH IV FLUSH PRN (19:15)
[2017-06-14 20:35] VITALS: BP 145/63; PULSE 89; RESP 22; TEMP 98.1; O2SAT 98
[2017-06-14] MEDS: SODIUM CHLORIDE 0.9% FLUSH 10 ML FLUSH IV FLUSH SCH (21:00)
[2017-06-14] MEDS: PRAVASTATIN SOD 80 MG TAB PO SCH (21:14)
[2017-06-14] MEDS: METOPROLOL TARTRATE 50 MG TAB PO SCH (21:14)
[2017-06-14] MEDS: ENOXAPARIN SODIUM 30 MG/0.3 ML SYRINGE SQ SCH (21:14)
[2017-06-14] MEDS: FLUTICASONE PROPIONATE 110 MCG/ACT 12 GM INHALER INH SCH (21:43)
[2017-06-14 23:14] VITALS: PULSE 79
[2017-06-15] VITALS (14 sets, daily range): BP systolic 123–147; BP diastolic 56–90; PULSE 70–99; RESP 17–24; TEMP 97.6–98.8; O2SAT 96–99
[2017-06-15] MEDS: LEVOTHYROXINE SODIUM 112 MCG TAB PO SCH (06:00)
[2017-06-15 07:54] LABS: AUTOMATED NEUTROPHIL # 7.5 TH/MM3 (1.8-7.7); BASOPHIL # 0.1 TH/MM3 (0-0.2); BASOPHIL % 0.6 % (0.0-2.0); EOSINOPHIL # 0.4 TH/MM3 (0-0.4); EOSINOPHIL % 3.9 % (0.0-4.0); HEMATOCRIT 31.5 % (35.0-46.0); HEMO FLAGS DIFF FINAL; LYMPH % 20.2 % (9.0-44.0); LYMPHOCYTE # 2.2 TH/MM3 (1.0-4.8); MEAN CELL VOLUME 91.8 FL (80.0-100.0); MEAN CORPUSCULAR HEMOGLOBIN 29.5 PG (27.0-34.0); MEAN CORPUSCULAR HGB CONC 32.2 % (32.0-36.0); MONO % 7.7 % (0.0-8.0); NEUT % 67.6 % (16.0-70.0); PLATELET COUNT 218 TH/MM3 (150-450); RED BLOOD COUNT 3.43 MIL/MM3 (4.00-5.30); WHITE BLOOD COUNT 11.1 TH/MM3 (4.0-11.0)
[2017-06-15 07:56] LABS: BICARBONATE 17.8 MEQ/L (21.0-32.0); POTASSIUM 4.6 MEQ/L (3.5-5.1)
[2017-06-15] MEDS ORDERED: LINAGLIPTIN 5 MG PO SCH (09:00)
[2017-06-15] MEDS ORDERED: [UNRECOGNIZED DRUG - OTHER] PO SCH (09:00)
[2017-06-15] MEDS: CHOLECALCIFEROL (VIT D3) 1000 UNIT TAB PO SCH (09:59)
[2017-06-15] MEDS: FUROSEMIDE 40 MG/4 ML VIAL IVP SCH ×2 (09:59→18:12)
[2017-06-15] MEDS: DIGOXIN 0.125 MG TAB PO SCH (09:59)
[2017-06-15] MEDS: METOPROLOL TARTRATE 50 MG TAB PO SCH ×2 (10:00→22:31)
[2017-06-15] MEDS: ASPIRIN 81 MG CHEW TAB CHEW SCH (10:00)
[2017-06-15] MEDS: GLIMEPIRIDE 4 MG TAB PO SCH (10:00)
[2017-06-15] MEDS: FLUTICASONE PROPIONATE 110 MCG/ACT 12 GM INHALER INH SCH ×2 (10:00→22:30)
[2017-06-15] MEDS: amLODIPine BESYLATE 5 MG TAB PO SCH (10:00)
[2017-06-15] MEDS: SODIUM CHLORIDE 0.9% FLUSH 10 ML FLUSH IV FLUSH SCH ×2 (10:01→22:31)
[2017-06-15] MEDS: LISINOPRIL 20 MG TAB PO SCH (10:02)
--- NOTE | 2017-06-15 13:31 | HHI.PR ---
Subjective Remarks Patient reports feeling better today Reports BLE improving Denies SOB Objective Vitals Vital Signs Date Time Temp Pulse Resp B/P (MAP) Pulse Ox O2 Delivery O2 Flow Rate FiO2 06/15/17 13:03 98.3 83 22 128/76 (93) 97 06/15/17 08:41 85 06/15/17 08:36 97.6 99 24 145/80 (101) 98 06/15/17 05:22 98.8 84 18 147/88 (107) 98 06/15/17 04:39 21 06/15/17 04:10 80 06/15/17 00:58 97.9 82 18 123/56 (78) 96 06/15/17 00:05 80 06/14/17 23:14 79 06/14/17 20:35 98.1 89 22 145/63 (90) 98 06/14/17 19:35 06/14/17 17:34 85 21 161/77 (105) 97 Room Air 06/14/17 14:44 97.8 105 16 155/70 (98) 98 Result Diagram: 06/15/17 0720 06/15/17 0720 Other Results Laboratory Tests Test 06/14/17 16:40 06/15/17 07:20 White Blood Count 13.0 TH/MM3 11.1 TH/MM3 Red Blood Count 3.65 MIL/MM3 3.43 MIL/MM3 Hemoglobin 10.8 GM/DL 10.1 GM/DL Hematocrit 32.8 % 31.5 % Mean Corpuscular Volume 90.0 FL 91.8 FL Mean Corpuscular Hemoglobin 29.6 PG 29.5 PG Mean Corpuscular Hemoglobin Concent 32.9 % 32.2 % Red Cell Distribution Width 13.1 % 13.0 % Platelet Count 273 TH/MM3 218 TH/MM3 Mean Platelet Volume 8.4 FL 8.4 FL Neutrophils (%) (Auto) 70.5 % 67.6 % Lymphocytes (%) (Auto) 19.5 % 20.2 % Monocytes (%) (Auto) 6.8 % 7.7 % Eosinophils (%) (Auto) 2.5 % 3.9 % Basophils (%) (Auto) 0.7 % 0.6 % Neutrophils # (Auto) 9.1 TH/MM3 7.5 TH/MM3 Lymphocytes # (Auto) 2.5 TH/MM3 2.2 TH/MM3 Monocytes # (Auto) 0.9 TH/MM3 0.8 TH/MM3 Eosinophils # (Auto) 0.3 TH/MM3 0.4 TH/MM3 Basophils # (Auto) 0.1 TH/MM3 0.1 TH/MM3 CBC Comment DIFF FINAL DIFF FINAL Differential Comment Prothrombin Time 10.0 SEC Prothromb Time International Ratio 1.0 RATIO Activated Partial Thromboplast Time 25.0 SEC Blood Urea Nitrogen 39 MG/DL 36 MG/DL Creatinine 1.59 MG/DL 1.39 MG/DL Random Glucose 174 MG/DL 138 MG/DL Calcium Level 9.0 MG/DL 8.6 MG/DL Magnesium Level 1.8 MG/DL Sodium Level 139 MEQ/L 139 MEQ/L Potassium Level 4.8 MEQ/L 4.6 MEQ/L Chloride Level 112 MEQ/L 113 MEQ/L Carbon Dioxide Level 18.6 MEQ/L 17.8 MEQ/L Anion Gap 8 MEQ/L 8 MEQ/L Estimat Glomerular Filtration Rate 32 ML/MIN 37 ML/MIN Total Creatine Kinase 57 U/L Troponin I LESS THAN 0.02 NG/ML B-Type Natriuretic Peptide 260 PG/ML 263 PG/ML Thyroid Stimulating Hormone 3rd Gen 1.940 uIU/ML Imaging Last 24 hours Impressions Chest X-Ray 06/14/17 1512 Signed Impressions: Service Date/Time: Wednesday, June 14, 2017 15:27 - CONCLUSION: 1. Interstitial vascular prominence suggesting mild congestion. 2. Small bilateral effusions. 3. No consolidating airspace disease. Jt Dunlap MD Objective Remarks GENERAL: This is a well-nourished, well-developed patient, in no apparent distress. CARDIOVASCULAR: IRREG rate and rhythm RESPIRATORY: clear throughout GASTROINTESTINAL: Abdomen soft, non-tender, nondistended. MUSCULOSKELETAL: Extremities without clubbing, cyanosis, 3+ edema lower extremities No calf tenderness. Negative Homans sign bilaterally. NEUROLOGICAL: Awake and alert. No focal deficits noted. Motor and sensory grossly within normal limits. Five out of 5 muscle strength in all muscle groups. Normal speech. A/P Problem List: (1) New onset of congestive heart failure ICD Codes: I50.9 - Heart failure, unspecified Status: Acute Plan: continue lasix iv bid continue home statin and home mg get 2d echo pending (2) Edema ICD Codes: R60.9 - Edema, unspecified Status: Acute Plan: see above (3) Diabetes type 2, controlled ICD Codes: E11.9 - Type 2 diabetes mellitus without complications Status: Chronic Plan: continue current meds and insulin (4) Hypertension ICD Codes: I10 - Essential (primary) hypertension Status: Chronic Plan: continue current meds (5) Renal insufficiency ICD Codes: N28.9 - Disorder of kidney and ureter, unspecified Status: Chronic Plan: will follow labs (6) Atrial fibrillation ICD Codes: I48.91 - Unspecified atrial fibrillation Status: Chronic Plan: on digoxin does not want anticoagulation other then asa Patient was prescribed pradaxa in 04/25 but refuses to take any blood thinner other than aspirin. Reviewed with patient and patient verbalizes understanding of the risks continue to refuse further anticoagulation Katelyn Mcneal Jun 15, 2017 13:31
[2017-06-15] MEDS ORDERED: INSULIN ASPAR PROT 70/30 1,000 UNITS/10 ML VIAL SQ SCH (16:00)
--- NOTE | 2017-06-15 16:22 | ECHRPT ---
Indication: Heart failure, unspecified CONCLUSIONS The left ventricular systolic function is normal with an estimated ejection fraction in the range of 55-60%. Wall thickness is measured at the upper limits of normal. Normal left ventricular size. There is moderate tricuspid regurgitation. The estimated pulmonary arterial pressure is 36 mmHg. The left atrial size is mildly dilated. Moderate mitral valve regurgitation. BP: 147 / 88 HR: 84 Rhythm: Sinus MEASUREMENTS (Male / Female) Normal Values Technical Quality:Good 2D ECHO LV Diastolic Diameter PLAX 3.9 cm 4.2 - 5.9 / 3.9 - 5.3 cm LV Systolic Diameter PLAX 3.0 cm IVS Diastolic Thickness 1.1 cm 0.6 - 1.0 / 0.6 - 0.9 cm LVPW Diastolic Thickness 1.1 cm 0.6 - 1.0 / 0.6 - 0.9 cm LV Relative Wall Thickness 0.6 LVOT Diameter 1.9 cm M-MODE Aortic Root Diameter MM 2.6 cm LA Systolic Diameter MM 4.7 cm LA Ao Ratio MM 1.8 AV Cusp Separation MM 2.0 cm DOPPLER AV Peak Velocity 110.0 cm/s AV Peak Gradient 4.8 mmHg LVOT Peak Velocity 101.0 cm/s LVOT Peak Gradient 4.1 mmHg AV Area Cont Eq pk 2.6 cm MR Peak Velocity 411.5 cm/s MR Peak Gradient 67.7 mmHg Mitral E Point Velocity 107.0 cm/s Mitral A Point Velocity 42.9 cm/s Mitral E to A Ratio 2.5 LV E' Lateral Velocity 8.2 cm/s Mitral E to LV E' Lateral Ratio 13.1 LV E' Septal Velocity 7.6 cm/s Mitral E to LV E' Septal Ratio 14.1 TR Peak Velocity 255.0 cm/s TR Peak Gradient 26.0 mmHg Right Atrial Pressure 10.0 mmHg Pulmonary Artery Systolic Pressu 36.0 mmHg Right Ventricular Systolic Press 36.0 mmHg PV Peak Velocity 111.0 cm/s PV Peak Gradient 4.9 mmHg FINDINGS LEFT VENTRICLE The left ventricular systolic function is normal with an estimated ejection fraction in the range of 55-60%. Wall thickness is measured at the upper limits of normal. Normal left ventricular size. RIGHT VENTRICLE Normal right ventricular size and systolic function. LEFT ATRIUM The left atrial size is mildly dilated. RIGHT ATRIUM The right atrial size is normal. ATRIAL SEPTUM Normal atrial septal thickness without atrial level shunting by limited color doppler interrogation. AORTA The aortic root and proximal ascending aorta are normal in size on limited imaging. MITRAL VALVE Moderate mitral valve regurgitation. AORTIC VALVE Trileaflet aortic valve. No aortic valve stenosis or regurgitation. TRICUSPID VALVE There is moderate tricuspid regurgitation. The estimated pulmonary arterial pressure is 36 mmHg. PULMONARY VALVE No pulmonary valve regurgitation or stenosis. VESSELS The inferior vena cava is normal in size. PERICARDIUM No pericardial effusion. Bill Greenberg MD (Electronically Signed) Final Date:15 June 2017 16:21
--- NOTE | 2017-06-15 16:29 | EKG ---
Date Performed: 06/14/2017 Time Performed: 16:16:26 PTAGE: 76 years EKG: ATRIAL FIBRILLATION WITH ABERRANT CONDUCTION OR VENTRICULAR PREMATURE COMPLEXES Consider in ferolateral ischemia. ABNORMAL RHYTHM ECG PREVIOUS TRACING : 04/22/2017 18.45 DOCTOR: Torin Byers Interpretating Date/Time 06/15/2017 16:28:21
[2017-06-15] MEDS: PRAVASTATIN SOD 80 MG TAB PO SCH (22:31)
[2017-06-15] MEDS: ENOXAPARIN SODIUM 30 MG/0.3 ML SYRINGE SQ SCH (22:35)
[2017-06-16] MEDS ORDERED: DEXTROSE 50% IN WATER 50 ML VIAL(D50) IV PUSH PRN (03:30)
[2017-06-16] MEDS ORDERED: GLUCAGON 1 MG/ML VIAL OTHER PRN (03:30)
[2017-06-16 04:19] VITALS: PULSE 87
[2017-06-16 04:45] VITALS: BP 140/58; PULSE 85; RESP 18; TEMP 98; O2SAT 97
[2017-06-16] MEDS: LEVOTHYROXINE SODIUM 112 MCG TAB PO SCH (05:43)
[2017-06-16] MEDS: ALBUTEROL SULFATE 90 MCG/ACT HFA 8 GM INHALER INH PRN (05:58)
[2017-06-16 07:59] VITALS: PULSE 86
[2017-06-16 08:24] VITALS: BP 165/80; PULSE 86; RESP 18; TEMP 97.9; O2SAT 95
[2017-06-16] MEDS: amLODIPine BESYLATE 5 MG TAB PO SCH (08:51)
[2017-06-16] MEDS: METOPROLOL TARTRATE 50 MG TAB PO SCH (08:52)
[2017-06-16] MEDS: DIGOXIN 0.125 MG TAB PO SCH (08:52)
[2017-06-16] MEDS: GLIMEPIRIDE 4 MG TAB PO SCH (08:52)
[2017-06-16] MEDS: CHOLECALCIFEROL (VIT D3) 1000 UNIT TAB PO SCH (08:53)
[2017-06-16] MEDS: SODIUM CHLORIDE 0.9% FLUSH 10 ML FLUSH IV FLUSH SCH (08:53)
[2017-06-16] MEDS: LISINOPRIL 20 MG TAB PO SCH (08:53)
[2017-06-16] MEDS: ASPIRIN 81 MG CHEW TAB CHEW SCH (08:54)
[2017-06-16] MEDS: FLUTICASONE PROPIONATE 110 MCG/ACT 12 GM INHALER INH SCH (08:54)
[2017-06-16] MEDS: FUROSEMIDE 40 MG/4 ML VIAL IVP SCH (08:55)
[2017-06-16] MEDS: LOW DOSE INSULIN NOVOLIN REGULAR SUPPLEMENTAL SCALE SQ SCH ×2 (08:58→12:30)
--- NOTE | 2017-06-16 09:28 | RADRPT ---
EXAM DATE/TIME: 06/16/2017 09:11 [facility] COMPARISON: CHEST PA & LAT, June 14, 2017, 15:27. INDICATIONS : Short of breath. MEDICAL HISTORY : Diabetes mellitus type II. Congestive heart failure. Hypertension Hypercholesterolemia SURGICAL HISTORY : Hysterectomy. Cholecystectomy. ENCOUNTER: Subsequent ACUITY: 3 days PAIN SCORE: 0/10 LOCATION: Bilateral chest FINDINGS: Portable AP view of the chest demonstrates a normal-sized cardiac silhouette. EKG lines overlie the p atient. No effusion, consolidation, or pneumothorax is identified. Bones and soft tissues demonstrate no acute finding. CONCLUSION: No acute cardiopulmonary abnormality is identified. Ghulam Knott MD on June 16, 2017 at 9:25 Board Certified Radiologist. This report was verified electronically.
[2017-06-16] MEDS ORDERED: FURO1TAB60 PO (10:27)
--- NOTE | 2017-06-16 10:29 | HHI.DCPOC ---
Discharge Care Plan Diagnosis: (1) Edema (2) Fluid retention Goals to Promote Your Health * To prevent worsening of your condition and complications * To maintain your health at the optimal level Directions to Meet Your Goals Take your medications as prescribed Follow your dietary instruction Follow activity as directed Keep your appointments as scheduled Take your immunizations and boosters as scheduled If your symptoms worsen call your PCP, if no PCP go to Urgent Care Center or Emergency Room Smoking is Dangerous to Your Health. Avoid second hand smoke Call the 24-hour hour crisis hotline for domestic abuse at Katelyn Mcneal Jun 16, 2017 10:29
--- NOTE | 2017-06-16 10:33 | HHI.DS ---
Discharge Summary Admission Date Jun 14, 2017 at 17:59 Discharge Date: Jun 16, 2017 Admitting Diagnosis new onset CHF (1) New onset of congestive heart failure Diagnosis: Principal ICD Codes: I50.9 - Heart failure, unspecified Status: Acute (2) Edema Diagnosis: Principal ICD Codes: R60.9 - Edema, unspecified Status: Acute (3) Diabetes type 2, controlled Diagnosis: Secondary ICD Codes: E11.9 - Type 2 diabetes mellitus without complications Status: Chronic (4) Hypertension Diagnosis: Secondary ICD Codes: I10 - Essential (primary) hypertension Status: Chronic (5) Renal insufficiency Diagnosis: Secondary ICD Codes: N28.9 - Disorder of kidney and ureter, unspecified Status: Chronic (6) Atrial fibrillation Diagnosis: Secondary ICD Codes: I48.91 - Unspecified atrial fibrillation Status: Chronic Consultants none Procedures none Brief History 76-year-old female presents to the emergency department for evaluation of shortness of breath. Patient was sent by her broke man, Dr. Trujillo, for new onset CHF. Patient states she has a history of asthma. She felt more short of breath approx last 2 days Her broke man, Dr. Trujillo, whop she see's for asthma ordered a chest x-ray which showed CHF so she was referred to the emergency department. Patient does state her Ventolin did help her shortness of breath. No fevers. She denies any chest pain. No abdominal pain. No nausea, vomiting, diarrhea. Patient denies any recent surgery or travel to the past month. No hemoptysis. No history DVT or PE. She does state that her bilateral lower extremities are more swollen than normal although she says severe over last week. Ventolin did help shortness of breath. No exacerbating factors. Moderate severity. 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 Had stress test according to patient was unremarkable. Will give IV lasix and follow labs. CBC/BMP: 06/15/17 0720 06/15/17 0720 Significant Findings Laboratory Tests Test 06/14/17 16:40 06/15/17 07:20 White Blood Count 13.0 TH/MM3 (4.0-11.0) 11.1 TH/MM3 (4.0-11.0) Red Blood Count 3.65 MIL/MM3 (4.00-5.30) 3.43 MIL/MM3 (4.00-5.30) Hemoglobin 10.8 GM/DL (11.6-15.3) 10.1 GM/DL (11.6-15.3) Hematocrit 32.8 % (35.0-46.0) 31.5 % (35.0-46.0) Neutrophils (%) (Auto) 70.5 % (16.0-70.0) Neutrophils # (Auto) 9.1 TH/MM3 (1.8-7.7) Blood Urea Nitrogen 39 MG/DL (7-18) 36 MG/DL (7-18) Creatinine 1.59 MG/DL (0.50-1.00) 1.39 MG/DL (0.50-1.00) Random Glucose 174 MG/DL (74-106) 138 MG/DL (74-106) Chloride Level 112 MEQ/L (98-107) 113 MEQ/L (98-107) Carbon Dioxide Level 18.6 MEQ/L (21.0-32.0) 17.8 MEQ/L (21.0-32.0) Estimat Glomerular Filtration Rate 32 ML/MIN (>89) 37 ML/MIN (>89) Troponin I LESS THAN 0.02 NG/ML B-Type Natriuretic Peptide 260 PG/ML (0-100) 263 PG/ML (0-100) Imaging Last Impressions Chest X-Ray 06/16/17 0800 Signed Impressions: Service Date/Time: Friday, June 16, 2017 09:11 - CONCLUSION: No acute cardiopulmonary abnormality is identified. Ghulam Knott MD PE at Discharge GENERAL: This is a well-nourished, well-developed patient, in no apparent distress. CARDIOVASCULAR: IRREG rate and rhythm RESPIRATORY: clear throughout GASTROINTESTINAL: Abdomen soft, non-tender, nondistended. MUSCULOSKELETAL: Extremities without clubbing, cyanosis, 3+ edema lower extremities No calf tenderness. Negative Homans sign bilaterally. NEUROLOGICAL: Awake and alert. No focal deficits noted. Motor and sensory grossly within normal limits. Five out of 5 muscle strength in all muscle groups. Normal speech. Hospital Course Concern for new onset of congestive heart failure SOB- improved lasix 40 mg iv bid will transition to 40 mg PO BID at [place] with repeat BMP in 3 days results to PCP continue home statin and home mg get 2d echo reveals EF 55-56%, moderate tricuspid regurgitation, estimated pulmonary arterial pressure is 36 mmHg, left atrial size is mildly dilated, moderate mitral valve regurgitation CXR 06/16 reviewed showed no acute cardiopulmonary process and appear improved from CXR on admission Edema see above Diabetes type 2, controlled continue current meds and insulin Hypertension continue current meds Renal insufficiency will follow labs Atrial fibrillation on digoxin does not want anticoagulation other then asa Patient was prescribed pradaxa in 04/25 but refuses to take any blood thinner other than aspirin. Reviewed with patient and patient verbalizes understanding of the risks continue to refuse further anticoagulation Pt Condition on Discharge: Stable Discharge Disposition: Discharge Home Discharge Instructions DIET: Follow Instructions for: Heart Healthy Diet Activities you can perform: Regular-No Restrictions Follow up Referrals: Cardiology - [address] Amaya PCP Follow-up - [address] Phan New Orders: BASIC METABOLIC PROF - 2-3 Days MAGNESIUM (MG) - 2-3 Days Changed Medications: Furosemide (Lasix) 40 Mg Tab 40 MG PO BID for fluid retention, #60 TAB 0 Refills (Changed from: DAILY; 30) Continued Medications: Albuterol 18 GM Inh (Ventolin Hfa 18 GM Inh) 90 Mcg/Act Aer 2 PUFF INH Q4H PRN for SHORTNESS OF BREATH, #1 INHALER 0 Refills Amlodipine (Amlodipine) 5 Mg Tab 5 MG PO DAILY for Blood Pressure Management, #30 TAB 0 Refills Aspirin (Aspirin) 81 Mg Chew 81 MG CHEW DAILY, TAB 0 Refills Cholecalciferol (Vitamin D3) 2,000 Unit Cap 2000 UNITS PO DAILY for Nutritional Supplement, #1 BOTTLE 0 Refills Digoxin (Digoxin) 0.125 Mg Tab 0.125 MG PO DAILY for Regulate Heart Beat, #30 TAB 0 Refills Fluticasone 12 GM Inh (Flovent Hfa 12 GM Inh) 110 Mcg/Act Inh 1 PUFF INH BID for Asthma Management, #1 INHALER 0 Refills Glimepiride (Amaryl) 4 Mg Tab 4 MG PO DAILY for Blood Sugar Management, #30 TAB 0 Refills Take with breakfast or first main meal Insulin Aspart Protam-Asp 70-30 Inj (Novolog Mix 70-30 Inj) 1,000 Unit/10 Ml Vial 56 UNITS SQ DAILY@1600 for Blood Sugar Management, #10 ML 0 Refills Levothyroxine (Levothyroxine) 112 Mcg Tab 112 MCG PO DAILY for Thyroid, #30 TAB 0 Refills Linagliptin (Tradjenta) 5 Mg Tab 5 MG PO DAILY for Blood Sugar Management, #30 TAB 0 Refills Lisinopril (Lisinopril) 40 Mg Tab 40 MG PO DAILY for Blood Pressure Management, #30 TAB 0 Refills Metoprolol Tartrate (Metoprolol Tartrate) 50 Mg Tab 50 MG PO BID, #60 TAB 0 Refills Pravastatin (Pravastatin) 80 Mg Tab 80 MG PO HS for Cholesterol Management, #30 TAB 0 Refills Additional Information Patient examined. Assessment and plan formulated with Katelyn Mcneal PA-C. I agree with the above. lasix increased from admission 40mg daily to 40mg BID repeat labs 06/19/17 f/u with PCP, Dr. Matson in one week f/u with Cardiology in 2 weeks. Katelyn Mcneal Jun 16, 2017 10:33 Prasanth Montaño DO Jun 16, 2017 11:36
[2017-06-16 12:02] VITALS: PULSE 78
[2017-06-16 12:40] VITALS: BP 140/90; PULSE 68; RESP 20; TEMP 96.8; O2SAT 98
== END 2017-06-16 14:23 | disposition home or self-care (01) ==
LOC: NEPC 14:43 → NEDA 17:59 → NEPGCP 19:59
PROVIDERS: ADMIT Hospitalist; ATTEND Hospitalist
DX: I11.0 Hypertensive heart disease with heart failure (principal); I50.9 Heart failure, unspecified; E11.40 Type 2 diabetes mellitus with diabetic neuropathy, unspecified; N28.9 Disorder of kidney and ureter, unspecified; G51.0 Bell's palsy; I48.91 Unspecified atrial fibrillation; E04.9 Nontoxic goiter, unspecified; J45.909 Unspecified asthma, uncomplicated; M54.9 Dorsalgia, unspecified; E78.00 Pure hypercholesterolemia, unspecified; K21.9 Gastro-esophageal reflux disease without esophagitis; Z79.01 Long term (current) use of anticoagulants
CPT/HCPCS: 71020; 80048; 82550; 82948; 83735; 83880; 84443; 84484; 85025; 85610; 85730; 93005; 93306; 96372; 96374; 96376; 97161; 99285; G0378; G8987; G8988; J1650; J1815; J1940